=== PATIENT | female | born 1975 ===

== ENCOUNTER 2017-07-22 15:20 | Emergency (ER) | payer OTHER ==
--- NOTE | 2017-07-22 16:26 | C.PDOC ---
History Of Present Illness 41 year old female presents to the ED with complaints of swelling to the right foot for one month. Patient states she took Advil and "antibiotics found at home " with no relief two weeks ago. She has a doctor's appointment scheduled for tomorrow and denies fever, weakness, or numbness. Time Seen by Provider: 07/22/17 15:34 Chief Complaint (Nursing): Lower Extremity Problem/Injury History Per: Patient History/Exam Limitations: no limitations Onset/Duration Of Symptoms: Persistent (1 month ) Recent travel outside of the [place]: No Past Medical History Reviewed: Historical Data, Nursing Documentation, Vital Signs Vital Signs: Last Vital Signs Temp 97.9 F 07/22/17 19:00 Pulse 72 07/22/17 19:00 Resp 18 07/22/17 19:00 BP 110/62 07/22/17 19:00 Pulse Ox 98 07/22/17 19:00 Surgical History: Cholecystectomy Family History: States: Other Other Family History: Non-contributory. - Social History Hx Alcohol Use: No Hx Substance Use: No Review Of Systems Except As Marked, All Systems Reviewed And Found Negative. Constitutional: Negative for: Fever Neurological: Negative for: Weakness, Numbness Physical Exam - Physical Exam Appears: Well, Non-toxic, No Acute Distress Skin: Warm, Dry Head: Atraumatic, Normacephalic Oral Mucosa: Moist Cardiovascular: Rhythm Regular Respiratory: No Decreased Breath Sounds, No Accessory Muscle Use Gastrointestinal/Abdominal: Soft, No Tenderness Extremity: Normal ROM, Tenderness (to dosrum of right foot ), No Pedal Edema, No Calf Tenderness, Capillary Refill (good capillary refill, less than two seconds ), No Deformity, No Swelling, Other (mild erythema to anterior right lower leg, no edema. ) Pulses: Left Dorsalis Pedis: Normal, Right Dorsalis Pedis: Normal Neurological/Psych: Oriented x3, Normal Motor, Normal Sensation ED Course And Treatment - Laboratory Results Result Diagrams: 07/22/17 17:18 07/22/17 17:18 O2 Sat by Pulse Oximetry: 100 (room air ) Progress Note: Blood work was ordered and patient was given Anaprox. Medical Decision Making Medical Decision Makinpm disc results w pt and plan for return early tomorrow morning for a venous duplex. she v/u and agrees w plan. Disposition - Disposition Referrals: [facility] [Outside] Disposition: HOME/ ROUTINE Disposition Time: 18:42 Condition: STABLE Additional Instructions: Por favor regrese maana por la maana para un sonograma de andrade pierna. Instructions: Leg Pain (ED) Forms: Gen Discharge Inst Arabic, [facility] (Estonian) Print Language: LAO - Clinical Impression Clinical Impression: Leg pain - Scribe Statement The provider has reviewed the documentation as recorded by the Scribe Alvina Bernstein All medical record entries made by the Scribe were at my direction and personally dictated by me. I have reviewed the chart and agree that the record accurately reflects my personal performance of the history, physical exam, medical decision making, and the department course for this patient. I have also personally directed, reviewed, and agree with the discharge instructions and disposition.
[2017-07-22] MEDS ORDERED: Naproxen 550 mg Tab PO STA (16:33)
[2017-07-22] MEDS ORDERED: Naproxen 550 mg Tab PO ONE (17:12)
[2017-07-22 17:25] LABS: BASO % 0.7 % (0.0-2.0); EOS # 0.3 K/uL (0.0-0.7); EOS % 3.4 % (0.0-4.0); HEMATOCRIT 36.2 % (34.0-47.0); LYMPH # 2.7 K/uL (1.0-4.3); LYMPH % 36.4 % (20.0-40.0); MEAN CORPUSCULAR HEMOGLOBIN 26.8 pg (27.0-31.0); MEAN CORPUSCULAR HGB CONC 33.1 g/dL (33.0-37.0); MEAN PLATELET VOLUME 9.1 fL (7.2-11.7); MONO # 0.6 K/uL (0.0-0.8); MONO % 7.9 % (0.0-10.0); RED CELL DISTRIBUTION WIDTH 13.2 % (11.5-14.5); WHITE BLOOD COUNT 7.4 K/uL (4.8-10.8)
[2017-07-22 17:30] LABS: CHLORIDE 105 mmol/L (98-107); POTASSIUM 4.2 mmol/L (3.6-5.2); SODIUM 138 mmol/L (132-148)
[2017-07-22 17:33] LABS: ALB/GLOB RATIO 1.4 (1.0-2.1); ALKALINE PHOSPHATASE 43 U/L (38-126); ALT/SGPT 30 U/L (9-52); AST/SGOT 18 U/L (14-36); BILIRUBIN,TOTAL 0.5 mg/dL (0.2-1.3); BLOOD UREA NITROGEN 16 mg/dL (7-17); CARBON DIOXIDE 23 mmol/L (22-30); GFR AFRICAN-AMERICAN > 60; GLUCOSE,RANDOM 89 mg/dL (65-105)
[2017-07-22 17:34] LABS: CALCIUM 8.9 mg/dl (8.6-10.4)
[2017-07-22] MEDS ORDERED: Enoxaparin 80 mg Syringe SC STA (18:41)
[2017-07-22] MEDS ORDERED: Enoxaparin 80 mg Syringe ONE (18:55)
[2017-07-22 19:01] VITALS: BP 110/62; PULSE 72; RESP 18; TEMP 97.9
[2017-07-24 15:14] VITALS: O2SAT 100
== END 2017-07-22 19:01 | disposition home or self-care (01) ==
LOC: C.ER 15:20
DX: M79.671 Pain in right foot (principal)
CPT/HCPCS: 80053; 85025; 85378; 96372; 99284; J1650

== ENCOUNTER 2017-07-23 08:26 | Emergency (ER) | payer OTHER ==
[2017-07-23 08:44] VITALS: TEMP 98.4
[2017-07-23 10:18] VITALS: O2SAT 98
--- NOTE | 2017-07-23 10:21 | C.PDOC ---
History Of Present Illness 41 year old female presents to the ED with complaints of intermittent right leg/ foot pain swelling for approix one month. Patient notes swelling has improved, however pain continued. Patient was seen yesterday in the ER - blood work was done which showed elevated d-dimer, however vascular was not available for venous doppler. Patient was given SC Lovenox and instructed to return today for doppler. She denies fever, falls/injuries, sensory changes, chest pain/ SOB. Time Seen by Provider: 07/23/17 09:00 Chief Complaint (Nursing): Lower Extremity Problem/Injury History Per: Patient History/Exam Limitations: no limitations Onset/Duration Of Symptoms: Intermittent Episodes (1 month ) Current Symptoms Are (Timing): Better Severity: Mild Recent travel outside of the [place]: No Past Medical History Reviewed: Historical Data, Nursing Documentation, Vital Signs Vital Signs: Last Vital Signs Temp 98.4 F 07/23/17 08:41 Pulse 78 07/23/17 13:43 Resp 16 07/23/17 13:43 BP 128/78 07/23/17 13:43 Pulse Ox 98 07/23/17 14:26 - Medical History PMH: No Chronic Diseases Surgical History: Cholecystectomy Family History: States: No Known Family Hx - Social History Hx Alcohol Use: No Hx Substance Use: No Review Of Systems Except As Marked, All Systems Reviewed And Found Negative. Constitutional: Negative for: Fever, Chills Cardiovascular: Negative for: Chest Pain, Palpitations Respiratory: Negative for: Shortness of Breath Gastrointestinal: Negative for: Nausea, Vomiting Musculoskeletal: Positive for: Other (right foot/lower leg pain and swelling) Skin: Negative for: Rash Neurological: Negative for: Numbness Physical Exam - Physical Exam Appears: Well, Non-toxic, No Acute Distress Skin: Normal Color, Warm, Dry, No Rash Head: Normacephalic Eye(s): bilateral: Normal Inspection Oral Mucosa: Moist Neck: Supple Cardiovascular: Rhythm Regular Respiratory: Normal Breath Sounds, No Rales, No Rhonchi, No Wheezing Extremity: Normal ROM, Tenderness (tenderness to palpation of right lateral foot and distal leg ), No Pedal Edema, Calf Tenderness (mild lower calf tenderness ), Capillary Refill (< 2 sec all digits ), No Deformity, No Swelling , Other (no erythema) Pulses: Left Dorsalis Pedis: Normal, Right Dorsalis Pedis: Normal Neurological/Psych: Oriented x3, Normal Sensation Gait: Steady ED Course And Treatment O2 Sat by Pulse Oximetry: 98 (room air ) Pulse Ox Interpretation: Normal - CT Scan/US CT ABD/EXT VENOGRAM Other Rad Studies (CT/US): Read By Radiologist, Radiology Report Reviewed CT/US Interpretation: Accession No. : [id number]. Patient Name / ID : NAEL PAGAN / [id number]. Exam Date : 07/23/2017 11:59:03 ( Approved ). Study Comment : Sex / Age : F / 41Y. Creator : Meg Vallecillo. Dictator : Meg Vallecillo. [employer]fuels Technology Development Manager : Or Assistant : Meg Vallecillo. Approver2 : Report Date : 07/23/2017 13:18:59. My Comment : . PROCEDURE: CT venogram of the abdomen pelvis and lower extremities. HISTORY: R/O RLE DVT - UNABLE TO DO DOPPLER. Right leg is swelling. COMPARISON: No prior similar study available for comparison. TECHNIQUE: Axial and reformatted coronal and sagittal CT venogram of the abdomen pelvis and lower extremity was obtained after IV contrast administration. IV contrast dose: 100 mL Visipaque 320. Total exam DLP: 1724.79. This CT exam was performed using one or more of the following dose reduction techniques: Automated exposure control, adjustment of the mA and/or kV according to patient size, and/or use of iterative reconstruction technique. FINDINGS: This study is suboptimal. The opacification of the superficial femoral veins and popliteal veins aids suboptimal therefore evaluation for DVT in the thigh and popliteal region is limited in this exam. The scan through the upper abdomen demonstrate no acute pathology. The patient is status post cholecystectomy. The liver is slightly heterogeneous mildly enlarged. The portal vein is patent. No evidence of acute pathology in the pancreas spleen and adrenal glands. The kidneys enhance symmetrically. There is suspicious for nonobstructing mass at the right colon measures 3.5 x 3 centimeter. No evidence of bowel obstruction. The uterus is mildly enlarged heterogeneous. There is moderate enlargement of the uterine cervix noted of uncertain etiology. There is enhancing wall cyst at the right adnexa measures 2.1 centimeter. The urinary bladder is grossly unremarkable. There is no evidence of filling defect in the IVC and iliac veins. The proximal portion of the femoral veins are also patent. The mid and distal femoral veins are not opacified therefore cannot be evaluated. There is diffuse soft tissue swelling at the right leg. There are multiple subcutaneous round densities in the lower abdomen, bilateral buttock areas and in the bilateral thigh likely represent subcutaneous injection of silicone or other cosmetic material. The osseous structures are grossly unremarkable. IMPRESSION: Limited study. The assessment of the mid and distal femoral veins and popliteal veins is limited in this study. No evidence of deep vein thrombosis at the IVC and iliac veins. No evidence of deep vein thrombosis in the proximal portion of the femoral veins. Suspicious for mass lesion at the right colon. Further assessment is recommended. Mildly enlarged uterus especially the uterine cervix. 2.1 centimeter enhancing wall cyst at the right adnexa may represent prominent follicle or corpus luteum cyst. Progress Note: Venous doppler ordered however patient had cosmetic procedure done where slicone is injected into legs - as per US tech he is unable to visualize veins by US. CT venogram with IV contrast of the lower extremities was ordered. 1:25PM- Discussed CT scan findings with patient. She understands that CT scan has not definitively ruled out a DVT, and that it also shows possible colon mass. Radiologist has recommended repeating current study with PO contrast (to better eval colon) and longer time lapse between IV contrast and CT scan (>2 min). 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 Dose of SC lovenox given now. Patient understands the importance of returning tomorrow, and she knows she should return to ED immediately if she has any concerning symptoms in the interim. Disposition Counseled Patient/Family Regarding: Studies Performed, Diagnosis, Need For Followup - Disposition Disposition: HOME/ ROUTINE Disposition Time: 13:30 Condition: STABLE Additional Instructions: REGRESAR A LA ALEA DE EMERGENCIA MAANA PARA LA REPETICIN DEL CT SCAN RETURN TO EMERGENCY ROOM TOMORROW FOR REPEAT OF CT SCAN Instructions: Leg Pain (ED) Forms: [facility] (South African) Print Language: BAHAMIAN - POA Present On Arrival: None - Clinical Impression Clinical Impression: Right leg pain - Scribe Statement The provider has reviewed the documentation as recorded by the Scribe Alvnia Bernstein
[2017-07-23] MEDS ORDERED: Iodixanol 320 mg/ml 150 ml Bottle IV ONE (11:28)
--- NOTE | 2017-07-23 13:20 | CT ---
PROCEDURE: CT venogram of the abdomen pelvis and lower extremities. HISTORY: R/O RLE DVT - UNABLE TO DO DOPPLER. Right leg is swelling. COMPARISON: No prior similar study available for comparison. TECHNIQUE: Axial and reformatted coronal and sagittal CT venogram of the abdomen pelvis and lower extremity was obtained after IV contrast administration. IV contrast dose: 100 mL Visipaque 320. Total exam DLP: 1724.79. This CT exam was performed using one or more of the following dose reduction techniques: Automated exposure control, adjustment of the mA and/or kV according to patient size, and/or use of iterative reconstruction technique. FINDINGS: This study is suboptimal. The opacification of the superficial femoral veins and popliteal veins aids suboptimal therefore evaluation for DVT in the thigh and popliteal region is limited in this exam. The scan through the upper abdomen demonstrate no acute pathology. The patient is status post cholecystectomy. The liver is slightly heterogeneous mildly enlarged. The portal vein is patent. No evidence of acute pathology in the pancreas spleen and adrenal glands. The kidneys enhance symmetrically. There is suspicious for nonobstructing mass at the right colon measures 3.5 x 3 centimeter. No evidence of bowel obstruction. The uterus is mildly enlarged heterogeneous. There is moderate enlargement of the uterine cervix noted of uncertain etiology. There is enhancing wall cyst at the right adnexa measures 2.1 centimeter. The urinary bladder is grossly unremarkable. There is no evidence of filling defect in the IVC and iliac veins. The proximal portion of the femoral veins are also patent. The mid and distal femoral veins are not opacified therefore cannot be evaluated. There is diffuse soft tissue swelling at the right leg. There are multiple subcutaneous round densities in the lower abdomen, bilateral buttock areas and in the bilateral thigh likely represent subcutaneous injection of silicone or other cosmetic material. The osseous structures are grossly unremarkable. IMPRESSION: Limited study. The assessment of the mid and distal femoral veins and popliteal veins is limited in this study. No evidence of deep vein thrombosis at the IVC and iliac veins. No evidence of deep vein thrombosis in the proximal portion of the femoral veins. Suspicious for mass lesion at the right colon. Further assessment is recommended. Mildly enlarged uterus especially the uterine cervix. 2.1 centimeter enhancing wall cyst at the right adnexa may represent prominent follicle or corpus luteum cyst.
[2017-07-23] MEDS ORDERED: Enoxaparin 80 mg Syringe SC STA (13:26)
[2017-07-23 13:44] VITALS: BP 128/78; PULSE 78; RESP 16
== END 2017-07-23 13:43 | disposition home or self-care (01) ==
LOC: C.ER 08:26
DX: M79.604 Pain in right leg (principal)
CPT/HCPCS: 75635; 99284; Q9967

== ENCOUNTER 2017-07-24 08:17 | Emergency (ER) | payer OTHER ==
[2017-07-24 08:21] VITALS: O2SAT 100
[2017-07-24] MEDS ORDERED: Sodium Chloride 0.9% 1,000 ML IV ONE (08:27)
[2017-07-24] MEDS ORDERED: Iohexol 240 (50 ml) PO STA (08:28)
[2017-07-24] MEDS ORDERED: Sodium Chloride 0.9% 1,000 ML ONE (08:38)
[2017-07-24] MEDS ORDERED: Iohexol 240 (50 ml) ONE (08:38)
--- NOTE | 2017-07-24 08:45 | C.PDOC ---
History Of Present Illness Patient returns to ED for repeat venogram of abd/pelvis and extremities to r/o DVT and possible colon CA. Imaging done yesterday was suboptimal and radiologist recommended repeat study with PO + IV contrast. Patient has been having RLE pain/swelling over the past 1 month - unable to have venous doppler due to silicone injections in legs (for aesthetic reasons). Time Seen by Provider: 07/24/17 08:21 Chief Complaint (Nursing): Lower Extremity Problem/Injury History Per: Patient History/Exam Limitations: no limitations Onset/Duration Of Symptoms: Persistent Current Symptoms Are (Timing): Better (decreased swelling, but pain persists) Severity: Mild Past Medical History Reviewed: Historical Data, Nursing Documentation, Vital Signs Vital Signs: Last Vital Signs Temp 98.0 F 07/24/17 14:23 Pulse 97 H 07/24/17 14:23 Resp 16 07/24/17 14:23 BP 127/78 07/24/17 14:23 Pulse Ox 100 07/24/17 14:23 - Medical History PMH: No Chronic Diseases Surgical History: Cholecystectomy Family History: States: No Known Family Hx - Social History Hx Alcohol Use: No Hx Substance Use: No Review Of Systems Except As Marked, All Systems Reviewed And Found Negative. Constitutional: Negative for: Fever, Chills Cardiovascular: Negative for: Chest Pain Respiratory: Negative for: Shortness of Breath Gastrointestinal: Negative for: Nausea, Vomiting, Abdominal Pain, Diarrhea Neurological: Positive for: Other (right lowel leg/food pain/swelling) Physical Exam - Physical Exam Appears: Well, Non-toxic, No Acute Distress Oral Mucosa: Moist Cardiovascular: Rhythm Regular Respiratory: Normal Breath Sounds, No Rales, No Rhonchi, No Wheezing Gastrointestinal/Abdominal: Normal Exam, Bowel Sounds, Soft, No Tenderness Extremity: Tenderness (mild TTP at distal lower leg and lateral foot, no erythema, no swelling), Capillary Refill (< 2 sec all digits ) ED Course And Treatment - Laboratory Results Result Diagrams: 07/24/17 08:47 07/24/17 08:47 O2 Sat by Pulse Oximetry: 100 (RA) Pulse Ox Interpretation: Normal - CT Scan/US CT ABD/EXT VENOGRAM Other Rad Studies (CT/US): Read By Radiologist, Radiology Report Reviewed CT/US Interpretation: Accession No. : [id number]. Patient Name / ID : NAEL PAGAN / [id number]. Exam Date : 07/24/2017 11:18:19 ( Approved ). Study Comment : Sex / Age : F / 41Y. Creator : Meg Vallecillo. Dictator : Meg Vallecillo. Position Classification Manager : Senior Pl Sql Developer : Meg Vallecillo. Approver2 : Report Date : 07/24/2017 13:54:31. My Comment : . This report is currently processing and HAS NOT BEEN OFFICIALLY SIGNED BY THE PHYSICIAN - ESTIMATED TIME OF APPROVAL IS 07/24/2017 13:59. PROCEDURE: CT Abdomen and Pelvis with contrast. HISTORY: possible colon CA, possible DVT RLE,po+iv contrast. COMPARISON: Comparison is made to the previous CT venogram dated . TECHNIQUE: Contrast dose: 100 mL Omnipaque intravenously. Axial and reformatted coronal and sagittal CT images of the abdomen and pelvis were obtained after IV and oral contrast administration. CT venogram of the pelvis and lower extremities was also performed. Radiation dose: Total exam DLP = 2226.17 and 412.72 mGy-cm. This CT exam was performed using one or more of the following dose reduction techniques: Automated exposure control, adjustment of the mA and/or kV according to patient size, and/or use of iterative reconstruction technique. FINDINGS: LOWER THORAX: Unremarkable. LIVER: Unremarkable. No gross lesion or ductal dilatation. GALLBLADDER AND BILE DUCTS : Status post cholecystectomy. PANCREAS: Unremarkable. No gross lesion or ductal dilatation. SPLEEN: Unremarkable. ADRENALS: Unremarkable. No mass. KIDNEYS AND URETERS: Unremarkable. No hydronephrosis. No solid mass. VASCULATURE: Unremarkable. No aortic aneurysm. BOWEL: There is nonobstructed soft tissue mass lesion at the ascending colon/ hepatic flexure measures 4.1 x 4 centimeter highly suspicious for malignant neoplasm. No evidence of bowel obstruction. APPENDIX: Normal appendix. PERITONEUM: Unremarkable. No free fluid. No free air. LYMPH NODES: Unremarkable. No enlarged lymph nodes. BLADDER: Mild the urinary bladder wall thickening. REPRODUCTIVE: Heterogeneous mildly enlarged uterus is again noted. The uterine cervix and lower uterine segment is moderately enlarged. Again seen is 2 centimeter cyst at the right adnexa. BONES: No acute fracture. OTHER FINDINGS: CT venogram of the pelvis and lower extremities: There is no evidence of filling defect in the bilateral iliac and femoral veins to suggest deep vein thrombosis. No evidence of deep vein thrombosis in the popliteal veins. There is diffuse swelling of the right thigh. There are subcutaneous stranding seen at the right thigh. There are scattered subcutaneous foci of mildly high attenuation seen in the posterior pelvis and lower extremities likely due to prior subcutaneous injections such as silicone injection. IMPRESSION: No evidence of deep vein thrombosis up to the knees. 4 x 24.1 centimeter mass lesion at the right colon suspicious for malignant neoplasm. Colonoscopy is recommended. Heterogeneous [id number] enlarged uterine cervix and lower segment. Further assessment by non emergent ultrasound of the pelvis is recommended. Mild urinary bladder wall thickening. The above findings were reported to and discussed with the referring ER physician Dr. Reyes at 1:50 p.m. on 07/24/2017 PE Progress Note: CT Venogram abd/ext with PO & IV constrast ordered and reviewed. 2:05PM- Spoke with patient at length about her CT scan findings. She understands that her scan shows a right sided colon mass, likely due to malignancy, and that she needs admission for colon mass/CA with further workup. Patient has no one to keep her daughter with today, but she will make arrnangements and return tomorrow for admission. Disposition Counseled Patient/Family Regarding: Studies Performed, Diagnosis, Need For Followup - Disposition Referrals: [facility] [Outside] Disposition: HOME/ ROUTINE Disposition Time: 14:05 Condition: STABLE Additional Instructions: DEVOLUCIN A LA ALEA DE EMERGENCIA MAANA PARA LA ADMISIN RETURN TO EMERGENCY ROOM TOMORROW FOR ADMISSION Forms: [employer] (Israeli) Print Language: CZECH - POA Present On Arrival: None - Clinical Impression Clinical Impression: Colonic mass
[2017-07-24 08:55] LABS: BASO % 0.9 % (0.0-2.0); EOS # 0.2 K/uL (0.0-0.7); EOS % 4.9 % (0.0-4.0); HEMATOCRIT 37.1 % (34.0-47.0); LYMPH # 1.6 K/uL (1.0-4.3); LYMPH % 32.8 % (20.0-40.0); MEAN CORPUSCULAR HEMOGLOBIN 27.2 pg (27.0-31.0); MEAN CORPUSCULAR HGB CONC 33.5 g/dL (33.0-37.0); MEAN PLATELET VOLUME 9.4 fL (7.2-11.7); MONO # 0.3 K/uL (0.0-0.8); MONO % 5.9 % (0.0-10.0); NRBC % 0.1 % (0.0-2.0); RED CELL DISTRIBUTION WIDTH 13.5 % (11.5-14.5)
[2017-07-24 09:02] LABS: INR 1.1
[2017-07-24 09:12] LABS: CHLORIDE 105 mmol/L (98-107); POTASSIUM 3.6 mmol/L (3.6-5.2); SODIUM 140 mmol/L (132-148)
[2017-07-24 09:14] LABS: GFR AFRICAN-AMERICAN > 60
[2017-07-24 09:15] LABS: BLOOD UREA NITROGEN 13 mg/dL (7-17); CALCIUM 8.5 mg/dl (8.6-10.4); CARBON DIOXIDE 23 mmol/L (22-30); GLUCOSE,RANDOM 101 mg/dL (65-105)
[2017-07-24] MEDS ORDERED: Iodixanol 320 mg/ml 150 ml Bottle IV ONE (11:00)
--- NOTE | 2017-07-24 13:56 | CT ---
PROCEDURE: CT Abdomen and Pelvis with contrast HISTORY: possible colon CA, possible DVT RLE,po+iv contrast COMPARISON: Comparison is made to the previous CT venogram dated 07/23/2017 TECHNIQUE: Contrast dose: 100 mL Omnipaque intravenously. Axial and reformatted coronal and sagittal CT images of the abdomen and pelvis were obtained after IV and oral contrast administration. CT venogram of the pelvis and lower extremities was also performed. Radiation dose: Total exam DLP = 2226.17 and 412.72 mGy-cm. This CT exam was performed using one or more of the following dose reduction techniques: Automated exposure control, adjustment of the mA and/or kV according to patient size, and/or use of iterative reconstruction technique. FINDINGS: LOWER THORAX: Unremarkable. LIVER: Unremarkable. No gross lesion or ductal dilatation. GALLBLADDER AND BILE DUCTS: Status post cholecystectomy PANCREAS: Unremarkable. No gross lesion or ductal dilatation. SPLEEN: Unremarkable. ADRENALS: Unremarkable. No mass. KIDNEYS AND URETERS: Unremarkable. No hydronephrosis. No solid mass. VASCULATURE: Unremarkable. No aortic aneurysm. BOWEL: There is nonobstructed soft tissue mass lesion at the ascending colon/ hepatic flexure measures 4.1 x 4 centimeter highly suspicious for malignant neoplasm. No evidence of bowel obstruction. APPENDIX: Normal appendix. PERITONEUM: Unremarkable. No free fluid. No free air. LYMPH NODES: Unremarkable. No enlarged lymph nodes. BLADDER: Mild the urinary bladder wall thickening. REPRODUCTIVE: Heterogeneous mildly enlarged uterus is again noted. The uterine cervix and lower uterine segment is moderately enlarged. Again seen is 2 centimeter cyst at the right adnexa. BONES: No acute fracture. OTHER FINDINGS: CT venogram of the pelvis and lower extremities: There is no evidence of filling defect in the bilateral iliac and femoral veins to suggest deep vein thrombosis. No evidence of deep vein thrombosis in the popliteal veins. There is diffuse swelling of the right thigh. There are subcutaneous stranding seen at the right thigh. There are scattered subcutaneous foci of mildly high attenuation seen in the posterior pelvis and lower extremities likely due to prior subcutaneous injections such as silicone injection. IMPRESSION: No evidence of deep vein thrombosis up to the knees. 4 x 24.1 centimeter mass lesion at the right colon suspicious for malignant neoplasm. Colonoscopy is recommended. Heterogeneous [id number] enlarged uterine cervix and lower segment. Further assessment by non emergent ultrasound of the pelvis is recommended. Mild urinary bladder wall thickening. The above findings were reported to and discussed with the referring ER physician Dr. Reyes at 1:50 p.m. on 07/24/2017 PE
[2017-07-24 14:24] VITALS: BP 127/78; PULSE 97; RESP 16; TEMP 98
== END 2017-07-24 14:24 | disposition home or self-care (01) ==
LOC: C.ER 08:17
DX: K63.89 Other specified diseases of intestine (principal)
CPT/HCPCS: 75635; 80048; 85025; 85610; 85730; 96360; 99285; J7040; Q9966; Q9967

== ENCOUNTER 2017-07-28 10:09 | Inpatient (IN) | payer OTHER, MEDICAID ==
--- NOTE | 2017-07-28 12:07 | C.PDOC ---
History Of Present Illness 41 yo female, who was seen in ED twice on 07/23 and 07/24/17, return to ED for admission. Pt reports, her scan shows a right sided colon mass, likely due to malignancy, and that she needs admission for colon mass/CA with further workup. Pt also reports right leg pain, had venogram without findings of DVT. Patient reports, " need to make arrangement for her daughter and now return for offered admission". Otherwise, pt denies fever, chills, headache, dizziness, CP, SOB, dyspnea, diaphoresis, palpitation, abd. pain, N/V/D, UTI sx, denies weakness, sensory or vascular deficits to B/L UEs and LEs. Ambulate to ED for evaluation, not in any apparent distress. Time Seen by Provider: 07/28/17 11:06 Chief Complaint (Nursing): Abdominal Pain History Per: Patient History/Exam Limitations: no limitations Onset/Duration Of Symptoms: Days Current Symptoms Are (Timing): Still Present Past Medical History Reviewed: Historical Data, Nursing Documentation, Vital Signs Vital Signs: Last Vital Signs Temp 98.1 F 07/28/17 10:25 Pulse 70 07/28/17 14:21 Resp 16 07/28/17 14:21 BP 115/73 07/28/17 14:21 Pulse Ox 100 07/28/17 14:21 Surgical History: Cholecystectomy Family History: States: No Known Family Hx - Social History Hx Alcohol Use: No Hx Substance Use: No Review Of Systems Except As Marked, All Systems Reviewed And Found Negative. Constitutional: Negative for: Fever, Chills Cardiovascular: Negative for: Chest Pain, Palpitations Respiratory: Negative for: Shortness of Breath Gastrointestinal: Negative for: Nausea, Vomiting, Abdominal Pain, Diarrhea Musculoskeletal: Positive for: Leg Pain (Right leg) Neurological: Negative for: Weakness, Numbness, Headache, Dizziness Physical Exam - Physical Exam Appears: Non-toxic, No Acute Distress Skin: Warm, Dry, No Rash Head: Atraumatic, Normacephalic Oral Mucosa: Moist Chest: Symmetrical, No Tenderness Cardiovascular: Rhythm Regular, No Murmur Respiratory: Normal Breath Sounds, No Rales, No Rhonchi, No Stridor, No Wheezing Neurological/Psych: Oriented x3, Normal Speech, Normal Motor ED Course And Treatment - Laboratory Results Result Diagrams: 07/28/17 12:50 07/28/17 12:50 O2 Sat by Pulse Oximetry: 100 (RA) Pulse Ox Interpretation: Normal - Other Rad CXR X-Ray: Viewed By Me, Read By Radiologist Interpretation: HISTORY: abdominal pain. COMPARISON: None available. TECHNIQUE: Chest, one view. FINDINGS: LUNGS: No focal consolidation. Please note that chest x-ray has limited sensitivity for the detection of pulmonary masses. PLEURA: No significant pleural effusion identified. No definite pneumothorax . CARDIOVASCULAR: Heart size appears within normal limits. OSSEOUS STRUCTURES: No acute osseous abnormality identified. VISUALIZED UPPER ABDOMEN: Unremarkable. OTHER FINDINGS: None. IMPRESSION: No focal consolidation, significant pleural effusion, or definite pneumothorax identified. Progress Note: Case discussed with Med-on-call and admission arranged Medical Decision Making Medical Decision Making: PLAN: * CXR * EKG * CBC * BMP * HCG * Urinalysis Disposition - Disposition Disposition: HOSPITALIZED Disposition Time: 12:10 Condition: STABLE - Clinical Impression Clinical Impression: Colonic mass - PA / CATERING CHEF / Resident Statement MD/DO has reviewed & agrees with the documentation as recorded. - Scribe Statement The provider has reviewed the documentation as recorded by the Scribe Lilly Villarreal All medical record entries made by the Beckiibmarcy were at my direction and personally dictated by me. I have reviewed the chart and agree that the record accurately reflects my personal performance of the history, physical exam, medical decision making, and the department course for this patient. I have also personally directed, reviewed, and agree with the discharge instructions and disposition.
[2017-07-28 12:54] LABS: BASO % 0.8 % (0.0-2.0); EOS # 0.1 K/uL (0.0-0.7); HEMATOCRIT 35.8 % (34.0-47.0); LYMPH # 1.5 K/uL (1.0-4.3); LYMPH % 27.4 % (20.0-40.0); MEAN CELL VOLUME 81.1 fL (81.0-99.0); MEAN CORPUSCULAR HEMOGLOBIN 27.1 pg (27.0-31.0); MEAN CORPUSCULAR HGB CONC 33.4 g/dL (33.0-37.0); MEAN PLATELET VOLUME 9.3 fL (7.2-11.7); MONO # 0.3 K/uL (0.0-0.8); MONO % 6.1 % (0.0-10.0); NRBC % 0.1 % (0.0-2.0); RED CELL DISTRIBUTION WIDTH 13.4 % (11.5-14.5); WHITE BLOOD COUNT 5.6 K/uL (4.8-10.8)
[2017-07-28 12:58] LABS: RBC URINE 1 /hpf (0-3); URINE BACTERIA RARE (<OCC); URINE BILIRUBIN NEGATIVE (NEGATIVE); URINE BLOOD 3+ (NEGATIVE); URINE COLOR Yellow (YELLOW); URINE GLUCOSE (UA) NORMAL (Normal); URINE KETONE 2+ mg/dL (NEGATIVE); URINE LEUKOCYTE ESTERASE NEG Leu/uL (Negative); URINE PROTEIN NEGATIVE (NEGATIVE); WBC URINE 1 /hpf (0-5)
[2017-07-28 13:04] LABS: CHLORIDE 103 mmol/L (98-107); INR 1.2; SODIUM 142 mmol/L (132-148)
[2017-07-28 13:05] LABS: POTASSIUM 3.6 mmol/L (3.6-5.2)
[2017-07-28 13:07] LABS: BLOOD UREA NITROGEN 12 mg/dL (7-17); CARBON DIOXIDE 23 mmol/L (22-30); GFR AFRICAN-AMERICAN > 60
[2017-07-28 13:08] LABS: CALCIUM 8.5 mg/dl (8.6-10.4); GLUCOSE,RANDOM 74 mg/dL (65-105)
--- NOTE | 2017-07-28 13:26 | CP.PCM.PN ---
Subjective - Date & Time of Evaluation Date of Evaluation: 07/28/17 Time of Evaluation: 13:22 - Subjective Subjective: CC: came here for abnormal test results, diarrhea x4 months Palestinian speaking. Patient is a 41yo [place] woman who states she has been losing weight, having diarrhea with every meal for 4 months, with lower extremity swelling. She has no past medical history to her knowledge, and no family history of cancer other than breast cancer in mom who from it in her 60's. Her also recently, and she thought that the diarrhea and weight loss could have been from the depression/pain she has been feeling from that. She denies all other symptoms; denies fevers/chills, night sweats, SOB, abdominal pain, N/V/, dysura/freq/urg, or lower extremity pain/swelling currently. PMhx: none Meds: Ibuprofen for pain PRN FamHx: Mom with breast CA, dad HTN Social: Independent in all IADL and ADL, works, has 1 daughter, does not smoke/ drink/drugs Surgeries: Gallbladder removal 6 years ago Allergies: None Objective - Vital Signs/Intake and Output Vital Signs (last 24 hours): Temp Pulse Resp BP Pulse Ox 98.1 F 63 18 114/72 100 07/28/17 10:25 07/28/17 12:11 07/28/17 12:11 07/28/17 12:11 07/28/17 12:47 - Medications Medications: Current Medications Acetaminophen (Tylenol 325mg Tab) 975 mg PO Q8H PRN PRN Reason: Fever >100.4 F Ibuprofen (Motrin Tab) 800 mg PO Q8H PRN PRN Reason: Pain, Mild (1-3) Ondansetron HCl (Zofran Inj) 4 mg IVP Q6H PRN PRN Reason: Nausea/Vomiting - Labs Labs: 07/28/17 12:50 07/28/17 12:50 PT 13.7 SECONDS (9.7-12.2) H 07/28/17 12:50 INR 1.2 07/28/17 12:50 APTT 29 SECONDS (21-34) 07/28/17 12:50 - Constitutional Appears: Well, Non-toxic - Head Exam Head Exam: ATRAUMATIC, NORMAL INSPECTION - Eye Exam Eye Exam: EOMI Pupil Exam: PERRL - ENT Exam ENT Exam: Mucous Membranes Moist - Neck Exam Neck Exam: Full ROM. absent: Lymphadenopathy - Respiratory Exam Respiratory Exam: Clear to Ausculation Bilateral, NORMAL BREATHING PATTERN. absent: Rales, Rhonchi, Wheezes - Cardiovascular Exam Cardiovascular Exam: REGULAR RHYTHM, +S1, +S2 - GI/Abdominal Exam GI & Abdominal Exam: Soft, Normal Bowel Sounds. absent: Tenderness, Organomegaly, Pulsatile Mass, Rebound - Extremities Exam Extremities Exam: Full ROM. absent: Calf Tenderness, Pedal Edema - Back Exam Back Exam: NORMAL INSPECTION. absent: CVA tenderness (L), CVA tenderness (R) - Neurological Exam Neurological Exam: Alert, Awake, CN II-XII Intact, Normal Gait, Oriented x3 - Psychiatric Exam Psychiatric exam: Normal Affect, Normal Mood - Skin Skin Exam: Warm Assessment and Plan - Assessment and Plan (Free Text) Assessment: 41yo F admitted for Colonic Mass found on imaging Colonic Mass -Winger:surgery; appreciate recs -Jl; GI; appreciate recs -NPO for colonscopy/biopsy after midnight tonight; pre-op labs done -4 by 21cm mass seen on previous contrast -patient has had 4 months of diarrhea; f/u stool studies Prophylaxis -Pepcid IV -Zofran IV PRN -Ibuprofen PRN pain -Lovenox [address] Jason Huerta PGY2 Note for Dr. Reddy
[2017-07-28] MEDS ORDERED: Enoxaparin 40 mg Syringe ONE (13:40)
[2017-07-28] MEDS ORDERED: Enoxaparin 40 mg Syringe SC SCH (14:00)
--- NOTE | 2017-07-28 14:15 | RAD ---
HISTORY: abdominal pain COMPARISON: None available. TECHNIQUE: Chest, one view. FINDINGS: LUNGS: No focal consolidation. Please note that chest x-ray has limited sensitivity for the detection of pulmonary masses. PLEURA: No significant pleural effusion identified. No definite pneumothorax . CARDIOVASCULAR: Heart size appears within normal limits. OSSEOUS STRUCTURES: No acute osseous abnormality identified. VISUALIZED UPPER ABDOMEN: Unremarkable. OTHER FINDINGS: None. IMPRESSION: No focal consolidation, significant pleural effusion, or definite pneumothorax identified.
--- NOTE | 2017-07-28 14:32 | CP.PCM.CON ---
History of Present Illness - History of Present Illness History of Present Illness: General Surgery - Dr. Gibson 41 yo F who presents to ED for abnormal CT results. Per patient and the chart she had a CT Venogram done last week for lower extremity pain/swelling , and was found to have 3x3cm mass in the Right colon near the hepatic flexure. Pt states that for the past 4 months she has noticed mild intermittent Right sided abdominal pain. Also for the past 4 months she has experienced diarrhea after meals, which has discouraged her from eating. She denies any N/V, Constipation, Hematochezia, Urinary symptoms. Initially pt. states that she had some pain in her right foot which prompted her to go to the ED. She had a CT Venogram done which was negative for any vascular abnormality. She denies any swelling in the Lower extremities. PMH: none PSH: Lap Cholecystectomy 6 years ago FH: Mother had Breast Ca in 60s No meds NKDA Review of Systems - Review of Systems All systems: reviewed and no additional remarkable complaints except (as per HPI ) Past Patient History - Infectious Disease Hx of Infectious Diseases: None - Past Social History Smoking Status: Never Smoked - PSYCHIATRIC Hx Substance Use: No - SURGICAL HISTORY Hx Cholecystectomy: Yes - ANESTHESIA Hx Anesthesia: Yes Hx Anesthesia Reactions: No Meds Allergies/Adverse Reactions: Allergies Allergy/AdvReac Type Severity Reaction Status Date / Time No Known Allergies Allergy Verified 07/28/17 10:28 - Medications Medications: Current Medications Acetaminophen (Tylenol 325mg Tab) 975 mg PO Q8H PRN PRN Reason: Fever >100.4 F Last Admin: 07/28/17 13:46 Dose: 975 mg Enoxaparin Sodium (Lovenox) 40 mg SC DAILY [facility] Last Admin: 07/28/17 13:46 Dose: 40 mg Famotidine (Pepcid) 20 mg IVP DAILY [facility] Last Admin: 07/28/17 13:46 Dose: Not Given Ibuprofen (Motrin Tab) 800 mg PO Q8H PRN PRN Reason: Pain, Mild (1-3) Ondansetron HCl (Zofran Inj) 4 mg IVP Q6H PRN PRN Reason: Nausea/Vomiting Physical Exam - Constitutional Appears: Well, No Acute Distress - Head Exam Head Exam: ATRAUMATIC, NORMAL INSPECTION, NORMOCEPHALIC - Eye Exam Eye Exam: Normal appearance - Respiratory Exam Respiratory Exam: NORMAL BREATHING PATTERN. absent: Respiratory Distress - Cardiovascular Exam Cardiovascular Exam: REGULAR RHYTHM - GI/Abdominal Exam GI & Abdominal Exam: Soft, Tenderness (R mid abdomen, ttp). absent: Distended, Firm, Guarding, Hernia, Rebound, Rigid - Neurological Exam Neurological exam: Alert, Oriented x3 - Psychiatric Exam Psychiatric exam: Normal Affect, Normal Mood - Skin Skin Exam: Dry, Intact Results - Vital Signs Recent Vital Signs: Last Vital Signs Temp 98.1 F 07/28/17 10:25 Pulse 70 07/28/17 14:21 Resp 16 07/28/17 14:21 BP 115/73 07/28/17 14:21 Pulse Ox 100 07/28/17 14:21 - Labs Result Diagrams: 07/28/17 12:50 07/28/17 12:50 Labs: Laboratory Results - last 24 hr 07/28/17 07/28/17 07/28/17 12:50 12:50 12:50 WBC 5.6 RBC 4.42 Hgb 12.0 Hct 35.8 MCV 81.1 MCH 27.1 MCHC 33.4 RDW 13.4 Plt Count 177 MPV 9.3 Neut % (Auto) 64.7 Lymph % (Auto) 27.4 Treasure % (Auto) 6.1 Eos % (Auto) 1.0 Baso % (Auto) 0.8 Neut # 3.6 Lymph # 1.5 Treasure # 0.3 Eos # 0.1 Baso # 0.0 PT 13.7 H INR 1.2 APTT 29 Sodium Potassium Chloride Carbon Dioxide Anion Gap BUN Creatinine Est GFR ( Amer) Est GFR (Non-Af Amer) Random Glucose Calcium Total Creatine Kinase Urine Color Yellow Urine Clarity Clear Urine pH 5.0 Ur Specific [place] 1.025 Urine Protein Negative Urine Glucose (UA) Normal Urine Ketones 2+ H Urine Blood 3+ H Urine Nitrate Negative Urine Bilirubin Negative Urine Urobilinogen 2.0 H Ur Leukocyte Esterase Neg Urine WBC (Auto) 1 Urine RBC (Auto) 1 Ur Squamous Epith Cells 1 Urine Bacteria Rare Urine HCG, Qual 07/28/17 07/28/17 12:50 12:50 WBC RBC Hgb Hct MCV MCH MCHC RDW Plt Count MPV Neut % (Auto) Lymph % (Auto) Treasure % (Auto) Eos % (Auto) Baso % (Auto) Neut # Lymph # Treasure # Eos # Baso # PT INR APTT Sodium 142 Potassium 3.6 Chloride 103 Carbon Dioxide 23 Anion Gap 20 BUN 12 Creatinine 0.5 L Est GFR ( Amer) > 60 Est GFR (Non-Af Amer) > 60 Random Glucose 74 Calcium 8.5 L Total Creatine Kinase 35 Urine Color Urine Clarity Urine pH Ur Specific [place] Urine Protein Urine Glucose (UA) Urine Ketones Urine Blood Urine Nitrate Urine Bilirubin Urine Urobilinogen Ur Leukocyte Esterase Urine WBC (Auto) Urine RBC (Auto) Ur Squamous Epith Cells Urine Bacteria Urine HCG, Qual Negative Assessment & Plan - Assessment and Plan (Free Text) Assessment: 41 yo F w/ R colon mass -NPO for colonoscopy tomorrow -Will F/U results of scope and GI recc. -Poss. OR Fri. or . -Continue care as per medical teams -LUIS ENRIQUE Miguel PGY3
[2017-07-28] MEDS ORDERED: Peg-Electrolyte Oral Soln 4L (Golytely) PO ONE (19:00)
[2017-07-28] MEDS: Dextrose 5%/Lactated Ringer's 1,000 ML IV SCH (19:38)
[2017-07-29] MEDS: Dextrose 5%/Lactated Ringer's 1,000 ML IV SCH ×4 (02:45→22:22)
[2017-07-29 07:24] LABS: HEMATOCRIT 33.8 % (34.0-47.0); MEAN CELL VOLUME 80.9 fL (81.0-99.0); MEAN CORPUSCULAR HEMOGLOBIN 27.2 pg (27.0-31.0); MEAN CORPUSCULAR HGB CONC 33.7 g/dL (33.0-37.0); MEAN PLATELET VOLUME 9.3 fL (7.2-11.7); RED CELL DISTRIBUTION WIDTH 13.5 % (11.5-14.5); WHITE BLOOD COUNT 5.2 K/uL (4.8-10.8)
[2017-07-29 07:36] LABS: ALB/GLOB RATIO 1.4 (1.0-2.1); ALKALINE PHOSPHATASE 32 U/L (38-126); ALT/SGPT 33 U/L (9-52); AST/SGOT 17 U/L (14-36); BILIRUBIN,TOTAL 0.5 mg/dL (0.2-1.3); BLOOD UREA NITROGEN 7 mg/dL (7-17); CALCIUM 8.7 mg/dl (8.6-10.4); CARBON DIOXIDE 26 mmol/L (22-30); CHLORIDE 103 mmol/L (98-107); GFR AFRICAN-AMERICAN > 60; GLUCOSE,RANDOM 116 mg/dL (65-105); POTASSIUM 3.4 mmol/L (3.6-5.2); SODIUM 138 mmol/L (132-148); TOTAL PROTEIN 5.5 g/dL (6.3-8.3)
--- NOTE | 2017-07-29 08:37 | CP.PCM.PN ---
Subjective - Date & Time of Evaluation Date of Evaluation: 07/29/17 Time of Evaluation: 08:34 - Subjective Subjective: General Surgery - Dr. Gibson Pt S&E. FATOU. Pt denies any complaints at this time. She is going for colonoscopy this morning. No F/C, N/V, SOB/Cp. Objective - Vital Signs/Intake and Output Vital Signs (last 24 hours): Temp Pulse Resp BP Pulse Ox 98.2 F 77 20 117/74 98 07/29/17 08:19 07/29/17 08:19 07/29/17 08:19 07/29/17 08:19 07/29/17 08:19 Intake and Output: 07/29/17 07/29/17 06:59 18:59 Intake Total 5300 Output Total 300 Balance 5000 - Medications Medications: Current Medications Acetaminophen (Tylenol 325mg Tab) 975 mg PO Q8H PRN PRN Reason: Fever >100.4 F Last Admin: 07/28/17 13:46 Dose: 975 mg Enoxaparin Sodium (Lovenox) 40 mg SC DAILY [facility] Last Admin: 07/28/17 13:46 Dose: 40 mg Famotidine (Pepcid) 20 mg IVP DAILY [facility] Last Admin: 07/28/17 13:46 Dose: Not Given Dextrose/Lactated Ringer's (Dextrose 5%/Lactated Ringer's) 1,000 mls @ 100 mls/ hr IV .Q10H [facility] Last Admin: 07/29/17 06:50 Dose: 100 mls/hr Ibuprofen (Motrin Tab) 800 mg PO Q8H PRN PRN Reason: Pain, Mild (1-3) Ondansetron HCl (Zofran Inj) 4 mg IVP Q6H PRN PRN Reason: Nausea/Vomiting Pneumococcal Polyvalent Vaccine (Pneumovax 23 Vaccine) 0.5 ml IM .ONCE ONE Stop: 07/30/17 10:01 - Labs Labs: 07/29/17 07:11 07/29/17 07:11 PT 13.7 SECONDS (9.7-12.2) H 07/28/17 12:50 INR 1.2 07/28/17 12:50 APTT 29 SECONDS (21-34) 07/28/17 12:50 - Constitutional Appears: No Acute Distress - Head Exam Head Exam: ATRAUMATIC, NORMAL INSPECTION, NORMOCEPHALIC - Eye Exam Eye Exam: Normal appearance - Respiratory Exam Respiratory Exam: NORMAL BREATHING PATTERN - Cardiovascular Exam Cardiovascular Exam: REGULAR RHYTHM - GI/Abdominal Exam GI & Abdominal Exam: Soft. absent: Distended, Guarding, Tenderness, Rebound - Neurological Exam Neurological Exam: Alert, Oriented x3 - Psychiatric Exam Psychiatric exam: Normal Affect, Normal Mood - Skin Skin Exam: Dry, Intact Assessment and Plan - Assessment and Plan (Free Text) Assessment: 41 yo F w/ R colon mass -Colonoscopy today, will F/U -Poss. OR Fri. or . pending results of colonoscopy -Continue care as per medical teams -LUIS ENRIQUE Miguel PGY3
--- NOTE | 2017-07-29 09:57 | VASCLAB ---
PROCEDURE: Lower Extremity Venous Duplex Exam. HISTORY: Pain in limb, swelling PRIORS: None. TECHNIQUE: Bilateral common femoral, femoral, popliteal and posterior tibial, peroneal and great saphenous veins were evaluated. Flow was assessed with color Doppler, compressibility, assessment of phasic flow and augmentation response. Report prepared by CHARISSA Núñez FINDINGS: RIGHT: 1. Common Femoral Vein: 1.1. Not visualized. 2. Femoral Vein: 2.1. Not visualized. 3. Popliteal Vein: 3.1. Compressibility - Fully compressible: Thrombus - None : Flow - Phasic: Augmentation -Normal: Reflux - None. 4. Posterior Tibial Vein: 4.1. Compressibility - Fully compressible: Thrombus - None: Flow - Phasic: Augmentation -Normal: Reflux - None. 5. Peroneal Vein: 5.1. Compressibility - Fully compressible: Thrombus - None: Flow - Phasic: Augmentation -Normal: Reflux - None. 6. Great Saphenous Vein: (lower leg only) 6.1. Compressibility - Fully compressible: Thrombus - None: Flow - Phasic: Augmentation - Normal: Reflux - None. LEFT: 1. Common Femoral Vein: 1.1. Not visualized. 2. Femoral Vein: 2.1. Not visualized. 3. Popliteal Vein: 3.1. Compressibility - Fully compressible: Thrombus - None : Flow - Phasic: Augmentation -Normal: Reflux - None. 4. Posterior Tibial Vein: 4.1. Not visualized. 5. Peroneal Vein: 5.1. Compressibility - Fully compressible: Thrombus - None: Flow - Phasic: Augmentation -Normal: Reflux - None. 6. Great Saphenous Vein: 6.1. Not visualized. OTHER FINDINGS: IMPRESSION: Right: No evidence of deep or superficial vein thrombosis of the right popliteal, posterior tibial, peroneal and lower great saphenous veins. Left: No evidence of deep vein thrombosis of the left popliteal and peroneal veins. LIMITED EXAMINATION. Limited imaging of the lower extremity veins, due to prior subcutaneous silicone injections in the lower extremities.
--- NOTE | 2017-07-29 10:38 | CP.PCM.PN ---
Subjective - Date & Time of Evaluation Date of Evaluation: 07/29/17 Time of Evaluation: 11:00 - Subjective Subjective: Patient is seen in room. She reports coming to the hospital because of having several episodes of diarrhea and weight loss of 15lbs over the past 4 months. She denies having fever, chills, nausea, vomiting, Objective - Vital Signs/Intake and Output Vital Signs (last 24 hours): Temp Pulse Resp BP Pulse Ox 98.2 F 77 20 117/74 98 07/29/17 08:19 07/29/17 08:19 07/29/17 08:19 07/29/17 08:19 07/29/17 08:19 Intake and Output: 07/29/17 07/29/17 06:59 18:59 Intake Total 5300 Output Total 300 Balance 5000 - Medications Medications: Current Medications Acetaminophen (Tylenol 325mg Tab) 975 mg PO Q8H PRN PRN Reason: Fever >100.4 F Last Admin: 07/28/17 13:46 Dose: 975 mg Bisacodyl (Dulcolax) 10 mg PO ONCE ONE Stop: 07/29/17 17:01 Enoxaparin Sodium (Lovenox) 40 mg SC DAILY [facility] Last Admin: 07/28/17 13:46 Dose: 40 mg Famotidine (Pepcid) 20 mg IVP DAILY [facility] Last Admin: 07/29/17 09:25 Dose: 20 mg Dextrose/Lactated Ringer's (Dextrose 5%/Lactated Ringer's) 1,000 mls @ 100 mls/ hr IV .Q10H [facility] Last Admin: 07/29/17 06:50 Dose: 100 mls/hr Potassium Chloride (Potassium Chloride 20 Meq/100 Ml) 20 meq in 100 mls @ 50 mls/hr IVPB ONCE ONE Stop: 07/29/17 11:36 Last Admin: 07/29/17 10:21 Dose: 50 mls/hr Ibuprofen (Motrin Tab) 800 mg PO Q8H PRN PRN Reason: Pain, Mild (1-3) Metoclopramide HCl (Reglan) 5 mg IVP Q6 [facility] Ondansetron HCl (Zofran Inj) 4 mg IVP Q6H PRN PRN Reason: Nausea/Vomiting Pneumococcal Polyvalent Vaccine (Pneumovax 23 Vaccine) 0.5 ml IM .ONCE ONE Stop: 07/30/17 10:01 Polyethylene Glycol/Electrolytes (Golytely) 4,000 ml PO ONCE ONE Stop: 07/29/17 12:31 - Labs Labs: 07/29/17 07:11 07/29/17 07:11 PT 13.7 SECONDS (9.7-12.2) H 07/28/17 12:50 INR 1.2 07/28/17 12:50 APTT 29 SECONDS (21-34) 07/28/17 12:50 - Constitutional Appears: Non-toxic, No Acute Distress - Head Exam Head Exam: NORMOCEPHALIC - Eye Exam Eye Exam: Normal appearance Pupil Exam: NORMAL ACCOMODATION - ENT Exam ENT Exam: Normal Exam - Respiratory Exam Respiratory Exam: Clear to Ausculation Bilateral. absent: Rales, Rhonchi, Wheezes - Cardiovascular Exam Cardiovascular Exam: REGULAR RHYTHM, RRR, +S1, +S2. absent: Gallop, Rubs - GI/Abdominal Exam GI & Abdominal Exam: Soft, Normal Bowel Sounds. absent: Tenderness - Extremities Exam Extremities Exam: Normal Inspection. absent: Pedal Edema - Psychiatric Exam Psychiatric exam: Normal Affect, Normal Mood Assessment and Plan - Assessment and Plan (Free Text) Assessment: 41yo F admitted for Colonic Mass found on imaging Colonic Mass 07/29: Patient is to have colonoscopy today. stool studies are also still pending. diarrhea has improved. Patient is for surgery tomorrow. Arthur:surgery; appreciate recs -Jl; GI; appreciate recs -NPO for colonscopy/biopsy after midnight tonight; pre-op labs done -4 by 21cm mass seen on previous contrast -patient has had 4 months of diarrhea; f/u stool studies Prophylaxis 07/29 continue current management. Pepcid IV -Zofran IV PRN -Ibuprofen PRN pain -Lovenox [address] Reddy
[2017-07-29] MEDS ORDERED: Peg-Electrolyte Oral Soln 4L (Golytely) PO ONE (12:30)
[2017-07-29] MEDS ORDERED: Potassium Chloride 20 mEq ER Tab PO ONE (13:00)
[2017-07-29] MEDS ORDERED: Propofol 10 mg/ml Inj (20 ML) ONE ×2 (14:00)
[2017-07-29] MEDS ORDERED: Lidocaine Hydrochloride 5 ML INJ ONE (14:01)
[2017-07-29] MEDS ORDERED: Lactated Ringer's 1,000 ML IV ONE (14:15)
[2017-07-29] MEDS ORDERED: Phytonadione 10 mg/ml Inj (Adult) SC STA (14:52)
[2017-07-29] MEDS ORDERED: Phytonadione 10 mg/ml Inj (Adult) SC ONE (16:15)
[2017-07-29] MEDS ORDERED: Bisacodyl 5mg EC Tab PO ONE (17:00)
[2017-07-30 07:28] LABS: HEMATOCRIT 34.3 % (34.0-47.0); MEAN CELL VOLUME 80.9 fL (81.0-99.0); MEAN CORPUSCULAR HEMOGLOBIN 27.2 pg (27.0-31.0); MEAN CORPUSCULAR HGB CONC 33.7 g/dL (33.0-37.0); MEAN PLATELET VOLUME 9.6 fL (7.2-11.7); RED CELL DISTRIBUTION WIDTH 13.4 % (11.5-14.5); WHITE BLOOD COUNT 5.8 K/uL (4.8-10.8)
[2017-07-30 08:03] LABS: CHLORIDE 100 mmol/L (98-107); POTASSIUM 3.3 mmol/L (3.6-5.2); SODIUM 140 mmol/L (132-148)
[2017-07-30 08:05] LABS: GFR AFRICAN-AMERICAN > 60
[2017-07-30 08:06] LABS: ALB/GLOB RATIO 1.3 (1.0-2.1); ALKALINE PHOSPHATASE 35 U/L (38-126); ALT/SGPT 30 U/L (9-52); AST/SGOT 13 U/L (14-36); BILIRUBIN,TOTAL 0.6 mg/dL (0.2-1.3); BLOOD UREA NITROGEN 4 mg/dL (7-17); CARBON DIOXIDE 25 mmol/L (22-30); GLUCOSE,RANDOM 121 mg/dL (65-105); TOTAL PROTEIN 5.6 g/dL (6.3-8.3)
[2017-07-30 08:07] LABS: CALCIUM 8.3 mg/dl (8.6-10.4)
[2017-07-30 08:12] LABS: CARCINOEMBRYONIC ANTIGEN 0.8 ng/mL (0-3.0)
--- NOTE | 2017-07-30 08:21 | CP.PCM.PN ---
Subjective - Date & Time of Evaluation Date of Evaluation: 07/30/17 Time of Evaluation: 07:00 - Subjective Subjective: General Surgery Progress Note for Dr. Gibson Patient seen and examined at bedside. No acute event overnight. Patient resting in bed comfortably with no complaints. She denies F/C, N/V, SOB/Cp. Objective - Vital Signs/Intake and Output Vital Signs (last 24 hours): Temp Pulse Resp BP Pulse Ox 98.7 F 82 19 117/79 100 07/30/17 08:06 07/30/17 08:06 07/30/17 08:06 07/30/17 08:06 07/30/17 08:06 Intake and Output: 07/30/17 07/30/17 06:59 18:59 Intake Total 2140 Balance 2140 - Medications Medications: Current Medications Acetaminophen (Tylenol 325mg Tab) 975 mg PO Q8H PRN PRN Reason: Fever >100.4 F Last Admin: 07/28/17 13:46 Dose: 975 mg Enoxaparin Sodium (Lovenox) 40 mg SC DAILY [facility] Last Admin: 07/28/17 13:46 Dose: 40 mg Famotidine (Pepcid) 20 mg IVP DAILY [facility] Last Admin: 07/29/17 09:25 Dose: 20 mg Dextrose/Lactated Ringer's (Dextrose 5%/Lactated Ringer's) 1,000 mls @ 100 mls/ hr IV .Q10H [facility] Last Admin: 07/29/17 22:22 Dose: 100 mls/hr Ibuprofen (Motrin Tab) 800 mg PO Q8H PRN PRN Reason: Pain, Mild (1-3) Metoclopramide HCl (Reglan) 5 mg IVP Q6 [facility] Last Admin: 07/30/17 06:30 Dose: Not Given Ondansetron HCl (Zofran Inj) 4 mg IVP Q6H PRN PRN Reason: Nausea/Vomiting Pneumococcal Polyvalent Vaccine (Pneumovax 23 Vaccine) 0.5 ml IM .ONCE ONE Stop: 07/30/17 10:01 - Labs Labs: 07/30/17 07:15 07/29/17 07:11 PT 13.7 SECONDS (9.7-12.2) H 07/28/17 12:50 INR 1.2 07/28/17 12:50 APTT 29 SECONDS (21-34) 07/28/17 12:50 - Constitutional Appears: No Acute Distress - Head Exam Head Exam: ATRAUMATIC, NORMOCEPHALIC - Eye Exam Eye Exam: Normal appearance - ENT Exam ENT Exam: Mucous Membranes Moist - Respiratory Exam Respiratory Exam: NORMAL BREATHING PATTERN - Cardiovascular Exam Cardiovascular Exam: REGULAR RHYTHM - GI/Abdominal Exam GI & Abdominal Exam: Soft. absent: Distended, Firm, Guarding, Tenderness, Rebound - Extremities Exam Extremities Exam: absent: Calf Tenderness - Neurological Exam Neurological Exam: Alert, Awake, Oriented x3 - Psychiatric Exam Psychiatric exam: Normal Affect, Normal Mood - Skin Skin Exam: Dry, Intact, Normal Color, Warm Assessment and Plan - Assessment and Plan (Free Text) Plan: 41 F with R colon mass -Colonoscopy showed fungating mass near hepatic flexure -Scheduled for OR Th -Continue care as per medical teams -LUIS ENRIQUE Hayes PGY1
[2017-07-30] MEDS: Dextrose 5%/Lactated Ringer's 1,000 ML IV SCH ×2 (09:09→18:45)
[2017-07-30] MEDS ORDERED: Potassium Chloride 20 mEq ER Tab PO STA ×2 (09:17→10:30)
[2017-07-30] MEDS ORDERED: Magnesium Citrate Oral SOL (300 ml) PO ONE (09:19)
[2017-07-30] MEDS ORDERED: Erythromycin Base 500 mg Tab PO ONE ×2 (10:00→11:00)
[2017-07-30] MEDS ORDERED: Pneumococcal 23-Valent Vaccine IM ONE (10:00)
[2017-07-30] MEDS: Piperacillin/Tazobact 3.375 GM in Sodium Chloride 100 ML IVPB SCH ×2 (10:30→17:30)
--- NOTE | 2017-07-30 11:04 | HP ---
HISTORY OF PRESENT ILLNESS: The patient is a 41-year-old female, admitted to the hospital with leg pain, swelling. The patient ____colon mass CAT scan, advised admission. The patient is nonsmoker, nondrinker. The patient is [place] with one child. PHYSICAL EXAMINATION: GENERAL: The patient is awake, alert, and oriented. VITAL SIGNS: Temperature 98 and pulse 90. HEENT: Within normal limits. NECK: Supple. CHEST: Symmetrical. HEART: Regular. ABDOMEN: Soft. EXTREMITIES: No edema. PLAN: The patient with colon mass. The patient will have colonoscopy. Supportive care. Leesa Reddy MD
[2017-07-30] MEDS ORDERED: Potassium Chloride 20 mEq ER Tab PO ONE (12:34)
--- NOTE | 2017-07-30 14:36 | CP.PCM.PN ---
Subjective - Date & Time of Evaluation Date of Evaluation: 07/30/17 Time of Evaluation: 10:00 - Subjective Subjective: Dr. Reddy notes: Patient is seen and examined in room. She says her diarrhea has improved since admission and she is having more regular bowel movements. Objective - Vital Signs/Intake and Output Vital Signs (last 24 hours): Temp Pulse Resp BP Pulse Ox 98.7 F 82 19 117/79 100 07/30/17 08:06 07/30/17 08:06 07/30/17 08:06 07/30/17 08:06 07/30/17 08:06 Intake and Output: 07/30/17 07/30/17 06:59 18:59 Intake Total 2140 Balance 2140 - Medications Medications: Current Medications Acetaminophen (Tylenol 325mg Tab) 975 mg PO Q8H PRN PRN Reason: Fever >100.4 F Last Admin: 07/28/17 13:46 Dose: 975 mg Enoxaparin Sodium (Lovenox) 40 mg SC DAILY [facility] Last Admin: 07/28/17 13:46 Dose: 40 mg Erythromycin (Erythromycin) 500 mg PO ONCE ONE Stop: 07/30/17 20:01 Famotidine (Pepcid) 20 mg IVP DAILY [facility] Last Admin: 07/30/17 09:09 Dose: 20 mg Dextrose/Lactated Ringer's (Dextrose 5%/Lactated Ringer's) 1,000 mls @ 100 mls/ hr IV .Q10H [facility] Last Admin: 07/30/17 09:09 Dose: 100 mls/hr Piperacillin Sod/Tazobactam (Sod 3.375 gm/ Sodium Chloride) 100 mls @ 200 mls/ hr IVPB Q8H [facility] Last Admin: 07/30/17 10:30 Dose: 200 mls/hr Ibuprofen (Motrin Tab) 800 mg PO Q8H PRN PRN Reason: Pain, Mild (1-3) Metoclopramide HCl (Reglan) 5 mg IVP Q6 [facility] Last Admin: 07/30/17 11:39 Dose: Not Given Neomycin Sulfate (Neomycin Tab) 1,000 mg PO ONCE ONE Stop: 07/30/17 20:01 Ondansetron HCl (Zofran Inj) 4 mg IVP Q6H PRN PRN Reason: Nausea/Vomiting - Labs Labs: 07/30/17 07:15 07/30/17 07:15 PT 13.7 SECONDS (9.7-12.2) H 07/28/17 12:50 INR 1.2 07/28/17 12:50 APTT 29 SECONDS (21-34) 07/28/17 12:50 - Constitutional Appears: Non-toxic, No Acute Distress - Eye Exam Eye Exam: Normal appearance Pupil Exam: NORMAL ACCOMODATION - Respiratory Exam Respiratory Exam: Clear to Ausculation Bilateral. absent: Rhonchi, Wheezes - Cardiovascular Exam Cardiovascular Exam: REGULAR RHYTHM, RRR, +S1, +S2. absent: Gallop, Rubs - GI/Abdominal Exam GI & Abdominal Exam: Soft, Normal Bowel Sounds. absent: Tenderness - Extremities Exam Extremities Exam: Normal Inspection - Neurological Exam Neurological Exam: Alert - Psychiatric Exam Psychiatric exam: Normal Affect, Normal Mood - Skin Skin Exam: Normal Color Assessment and Plan - Assessment and Plan (Free Text) Assessment: Colonic Mass 07/30: Colonscopy showed a colonic mass in the hepatic flexure and polyups. Surgery is scheduled for trohayleyow with Dr. Huertas. 07/29: Patient is to have colonoscopy today. stool studies are also still pending. diarrhea has improved. Arthur:surgery; appreciate recs -Jl; GI; appreciate recs -NPO for colonscopy/biopsy after midnight tonight; pre-op labs done -4 by 21cm mass seen on previous contrast -patient has had 4 months of diarrhea; f/u stool studies Prophylaxis 07/30 continue current management 07/29 continue current management. Pepcid IV -Zofran IV PRN -Ibuprofen PRN pain -Lovenox [address] Reddy
--- NOTE | 2017-07-30 15:03 | PN ---
DATE: LOCATION: [address] [place] [address] B. SUBJECTIVE: This is 41 years old female seen and examined in rounds without significant clinical changes or reported active bleeding, post colonoscopy with polypectomy and biopsy. No nausea or vomiting reported. The entire chart is reviewed including, but not limited to the most recent lab and radiology study results, current and the previous medication lists, current and the previous medical events and the results of the pathology report from yesterday was indicative of tubulovillous adenoma as well as two tubular adenomatous polyps. PHYSICAL EXAMINATION: GENERAL: A 41 years old female, awake, alert, oriented. VITAL SIGNS: Afebrile with pulse rate of 84, respiratory rate of 20-22, blood pressure of 124/76. HEENT: Showed dry oral mucous membrane, nonicteric sclerae. LUNGS: Clear. Breathing sounds are present bilaterally. HEART: Positive S1 and S2. ABDOMEN: Soft. Bowel sounds are present. No mass or organomegaly. No rebound tenderness or guarding. EXTREMITIES: Without edema, clubbing, or cyanosis. NEUROLOGIC: No reported new neurological deficits, sensory or motor. LABORATORY DATA: Today's lab showed normal CBC with low potassium 3.3, low BUN and creatinine, but increased blood glucose level 121 with low calcium 8.3, with low albumin and low total protein. All the cancer markers are reported normal. IMPRESSION: 1. Colon polyps. 2. Tubulovillous adenoma of the colon, large, need surgical resection. 3. Known history of status post cholecystectomy. Case discussed with Dr. Reddy today. The patient will need partial colon resection. Annetta Fox MD cc: Annetta Fox MD
[2017-07-30 16:26] LABS: C DIFF TOXIN A B NEGATIVE (NEGATIVE)
[2017-07-30 20:33] LABS: FECAL LEUKOCYTES NEGATIVE (NEGATIVE)
--- NOTE | 2017-07-30 21:02 | CP.PCM.CON ---
History of Present Illness - History of Present Illness History of Present Illness: 41 year old male with a history admitted with a near obstructing right sided colon mass. She reports to intermittent abdominal pain which prompted a CT scan to be done which revealed her colonic mass. She denies blood in the stool but notes to black stools intermittently. She has not lost weight and denies weightloss. Past medical history: None Past surgical history: Cholecystectomy Family history: Mother had breast cancer in her 50s Social history: Denies tobacco, alcohol, and illicit drug use. Allergies: NKA Review of systems: All remaining review of systems including HEENT, cardiovascular, respiratory, gastrointestinal, genitourinary, musculoskeletal, dermatologic, neurologic, and psychiatric are negative unless mentioned in the HPI. Past Patient History - Infectious Disease Hx of Infectious Diseases: None - Past Medical History & Family History Past Medical History?: No - Past Social History Smoking Status: Never Smoked - MUSCULOSKELETAL/RHEUMATOLOGICAL Hx Falls: No - PSYCHIATRIC Hx Substance Use: No - SURGICAL HISTORY Hx Surgeries: Yes Hx Cholecystectomy: Yes - ANESTHESIA Hx Anesthesia: Yes Hx Anesthesia Reactions: No Meds Allergies/Adverse Reactions: Allergies Allergy/AdvReac Type Severity Reaction Status Date / Time No Known Allergies Allergy Verified 07/28/17 10:28 - Medications Medications: Current Medications Acetaminophen (Tylenol 325mg Tab) 975 mg PO Q8H PRN PRN Reason: Fever >100.4 F Last Admin: 07/28/17 13:46 Dose: 975 mg Enoxaparin Sodium (Lovenox) 40 mg SC DAILY [facility] Last Admin: 07/28/17 13:46 Dose: 40 mg Famotidine (Pepcid) 20 mg IVP DAILY [facility] Last Admin: 07/30/17 09:09 Dose: 20 mg Dextrose/Lactated Ringer's (Dextrose 5%/Lactated Ringer's) 1,000 mls @ 100 mls/ hr IV .Q10H [facility] Last Admin: 07/30/17 18:45 Dose: 100 mls/hr Piperacillin Sod/Tazobactam (Sod 3.375 gm/ Sodium Chloride) 100 mls @ 200 mls/ hr IVPB Q8H [facility] Last Admin: 07/30/17 17:30 Dose: 200 mls/hr Ibuprofen (Motrin Tab) 800 mg PO Q8H PRN PRN Reason: Pain, Mild (1-3) Metoclopramide HCl (Reglan) 5 mg IVP Q6 [facility] Last Admin: 07/30/17 18:00 Dose: Not Given Ondansetron HCl (Zofran Inj) 4 mg IVP Q6H PRN PRN Reason: Nausea/Vomiting Physical Exam - Head Exam Head Exam: ATRAUMATIC - Eye Exam Eye Exam: Normal appearance - ENT Exam ENT Exam: Mucous Membranes Dry - Respiratory Exam Respiratory Exam: NORMAL BREATHING PATTERN - Cardiovascular Exam Cardiovascular Exam: +S1, +S2 - GI/Abdominal Exam GI & Abdominal Exam: Normal Bowel Sounds - Extremities Exam Extremities exam: Positive for: normal inspection - Neurological Exam Neurological exam: Oriented x3 - Psychiatric Exam Psychiatric exam: Normal Affect, Normal Mood - Skin Skin Exam: Warm Results - Vital Signs Recent Vital Signs: Last Vital Signs Temp 98.4 F 07/30/17 15:00 Pulse 66 07/30/17 15:00 Resp 20 07/30/17 15:00 BP 115/76 07/30/17 15:00 Pulse Ox 100 07/30/17 15:00 - Labs Result Diagrams: 07/30/17 07:15 07/30/17 07:15 Labs: Laboratory Results - last 24 hr 07/28/17 07/30/17 07/30/17 Unknown 07:15 07:15 WBC 5.8 RBC 4.24 Hgb 11.6 Hct 34.3 MCV 80.9 L MCH 27.2 MCHC 33.7 RDW 13.4 Plt Count 146 MPV 9.6 Sodium 140 Potassium 3.3 L Chloride 100 Carbon Dioxide 25 Anion Gap 18 BUN 4 L Creatinine 0.6 L Est GFR ( Amer) > 60 Est GFR (Non-Af Amer) > 60 Random Glucose 121 H Calcium 8.3 L Total Bilirubin 0.6 AST 13 L D ALT 30 Alkaline Phosphatase 35 L Total Protein 5.6 L Albumin 3.2 L Globulin 2.4 Albumin/Globulin Ratio 1.3 Carcinoembryonic Ag 0.8 Urine HCG, Qual Stool Occult Blood Stool Leukocytes, Qual Negative C. difficile Ag & Toxin Negative 07/30/17 07/30/17 11:35 16:33 WBC RBC Hgb Hct MCV MCH MCHC RDW Plt Count MPV Sodium Potassium Chloride Carbon Dioxide Anion Gap BUN Creatinine Est GFR ( Amer) Est GFR (Non-Af Amer) Random Glucose Calcium Total Bilirubin AST ALT Alkaline Phosphatase Total Protein Albumin Globulin Albumin/Globulin Ratio Carcinoembryonic Ag Urine HCG, Qual Negative Stool Occult Blood Negative Stool Leukocytes, Qual C. difficile Ag & Toxin Assessment & Plan (1) Colonic mass Assessment and Plan: for surgery in AM will check CEA will check CT chest to complete staging further treatment recommendations based on pathology Status: Acute (2) Anemia Assessment and Plan: mild will check ferritin, retic count, b12, folate to further characterize chronic GI blood loss Thank you for this interesting consult. Status: Acute
[2017-07-31] MEDS: Piperacillin/Tazobact 3.375 GM in Sodium Chloride 100 ML IVPB SCH ×3 (00:55→22:00)
[2017-07-31] MEDS: Dextrose 5%/Lactated Ringer's 1,000 ML IV SCH ×2 (05:45→13:52)
[2017-07-31 06:42] LABS: HEMATOCRIT 34.4 % (34.0-47.0); MEAN CELL VOLUME 80.2 fL (81.0-99.0); MEAN CORPUSCULAR HEMOGLOBIN 27.1 pg (27.0-31.0); MEAN CORPUSCULAR HGB CONC 33.9 g/dL (33.0-37.0); RED CELL DISTRIBUTION WIDTH 13.5 % (11.5-14.5); RETIC% 1.2 % (0.5-1.5); WHITE BLOOD COUNT 5.8 K/uL (4.8-10.8)
[2017-07-31 07:07] LABS: ALB/GLOB RATIO 1.3 (1.0-2.1); ALKALINE PHOSPHATASE 34 U/L (38-126); ALT/SGPT 32 U/L (9-52); AST/SGOT 15 U/L (14-36); BILIRUBIN,TOTAL 0.6 mg/dL (0.2-1.3); BLOOD UREA NITROGEN 4 mg/dL (7-17); CALCIUM 8.5 mg/dl (8.6-10.4); CARBON DIOXIDE 28 mmol/L (22-30); CHLORIDE 102 mmol/L (98-107); GFR AFRICAN-AMERICAN > 60; GLUCOSE,RANDOM 115 mg/dL (65-105); POTASSIUM 3.6 mmol/L (3.6-5.2); SODIUM 139 mmol/L (132-148); TOTAL PROTEIN 5.5 g/dL (6.3-8.3)
[2017-07-31 07:25] LABS: CARCINOEMBRYONIC ANTIGEN 0.7 ng/mL (0-3.0)
[2017-07-31 08:00] LABS: FOLATE 12.6 ng/mL
[2017-07-31] MEDS ORDERED: Iodixanol 320 MG/ML 100 ML BOTTLE IV ONE (08:41)
--- NOTE | 2017-07-31 09:16 | CP.PCM.PN ---
Subjective - Date & Time of Evaluation Date of Evaluation: 07/31/17 Time of Evaluation: 09:15 - Subjective Subjective: Pt seen and examined at bedside this AM; she is very nervous for her surgery but reassurance was given. She denies all symptoms today; denies fevers/chills, KLINE, CP, SOB, abdominal pain, N/V, dysuria/freq/urg or lower extremity pain/ swelling. Objective - Vital Signs/Intake and Output Vital Signs (last 24 hours): Temp Pulse Resp BP Pulse Ox 98.4 F 70 20 108/70 98 07/31/17 08:10 07/31/17 08:10 07/31/17 08:10 07/31/17 08:10 07/31/17 08:10 Intake and Output: 07/31/17 07/31/17 06:59 18:59 Intake Total 1900 Balance 1900 - Medications Medications: Current Medications Acetaminophen (Tylenol 325mg Tab) 975 mg PO Q8H PRN PRN Reason: Fever >100.4 F Last Admin: 07/28/17 13:46 Dose: 975 mg Enoxaparin Sodium (Lovenox) 40 mg SC DAILY [facility] Last Admin: 07/28/17 13:46 Dose: 40 mg Famotidine (Pepcid) 20 mg IVP DAILY [facility] Last Admin: 07/30/17 09:09 Dose: 20 mg Dextrose/Lactated Ringer's (Dextrose 5%/Lactated Ringer's) 1,000 mls @ 100 mls/ hr IV .Q10H [facility] Last Admin: 07/31/17 05:45 Dose: 100 mls/hr Piperacillin Sod/Tazobactam (Sod 3.375 gm/ Sodium Chloride) 100 mls @ 200 mls/ hr IVPB Q8H [facility] Last Admin: 07/31/17 00:55 Dose: 200 mls/hr Ibuprofen (Motrin Tab) 800 mg PO Q8H PRN PRN Reason: Pain, Mild (1-3) Metoclopramide HCl (Reglan) 5 mg IVP Q6 [facility] Last Admin: 07/31/17 05:45 Dose: 5 mg Ondansetron HCl (Zofran Inj) 4 mg IVP Q6H PRN PRN Reason: Nausea/Vomiting - Labs Labs: 07/31/17 06:23 07/31/17 06:23 PT 13.7 SECONDS (9.7-12.2) H 07/28/17 12:50 INR 1.2 07/28/17 12:50 APTT 29 SECONDS (21-34) 07/28/17 12:50 - Constitutional Appears: Non-toxic - Head Exam Head Exam: ATRAUMATIC - Eye Exam Eye Exam: EOMI - ENT Exam ENT Exam: Mucous Membranes Moist - Neck Exam Neck Exam: Full ROM. absent: Lymphadenopathy - Respiratory Exam Respiratory Exam: Clear to Ausculation Bilateral, NORMAL BREATHING PATTERN. absent: Rales, Rhonchi, Wheezes - Cardiovascular Exam Cardiovascular Exam: REGULAR RHYTHM, +S1, +S2 - GI/Abdominal Exam GI & Abdominal Exam: Soft, Normal Bowel Sounds - Rectal Exam Rectal Exam: Deferred - Extremities Exam Extremities Exam: Full ROM. absent: Calf Tenderness - Back Exam Back Exam: NORMAL INSPECTION. absent: CVA tenderness (L), CVA tenderness (R) - Neurological Exam Neurological Exam: Alert, Awake, CN II-XII Intact, Oriented x3 Additional comments: patient is very nervous for surgery - Psychiatric Exam Psychiatric exam: Normal Affect - Skin Skin Exam: Warm Assessment and Plan - Assessment and Plan (Free Text) Assessment: 41yo F admitted for Colonic Mass found on imaging, now with GI, Surgery, and Heme-onc on board Colonic Mass -Arthur:surgery; appreciate recs; patient is for surgery today 07/31/2017; going for R Hemicolectomy with reattachment -Jl; GI; appreciate recs; large mass seen in flexure. please refer to report -Heme Onc: Marcus-appreciate recs -4 by 2.1cm mass seen on previous contrast -patient has had 4 months of diarrhea; stool studies have been negative -will continue to monitor s/p surgery Prophylaxis -Pepcid IV -Zofran IV PRN -Ibuprofen PRN pain -Lovenox 40 daily (SCD after surgery, can start 24 hours after surgery) Dr. Jason Huerta PGY2 Note for Dr. Reddy
--- NOTE | 2017-07-31 09:25 | CT ---
CT chest with IV contrast Indication: colon mass staging Technique: Contiguous axial images were obtained through the chest with intravenous contrast enhancement. Sagittal and coronal reconstructions were generated and reviewed. This CT exam was performed using 1 or more of the falling dose reduction techniques: Automated exposure control, adjustment of the MAA and/or kV according to patient size, and/or use of iterative reconstruction technique. IV Contrast: 100 mL Visipaque Radiation dose (DLP): 340.65 MGy-cm. Comparison: Chest xray 07/28/17 Findings: Visualized portions of the inferior thyroid gland appear unremarkable. The mediastinal and hilar vascular structures appear within normal limits. The heart appears within normal limits of size. No focal consolidation. No pleural effusion. No pneumothorax. 3 x 8 mm left upper lobe nodule (series 3, image 16). 4 mm subpleural nodular density within the posterior left upper lobe (series 3, image 44). Hypoattenuation of the liver compatible with hepatic steatosis. Hypoattenuation adjacent to the falciform ligament, likely focal fat. Cholecystectomy. No acute osseous abnormality is detected. Impression: 3 x 8 mm left upper lobe nodule. 4 mm subpleural nodular density within the posterior left upper lobe. Patient with a known malignancy for risk for metastases should receive 3 month follow-up. Hypoattenuation of the liver compatible with hepatic steatosis. Hypoattenuation adjacent to the falciform ligament, likely focal fat. Cholecystectomy.
[2017-07-31] MEDS ORDERED: Lactated Ringer's 1,000 ML IV ONE ×2 (12:50→12:55)
[2017-07-31] MEDS ORDERED: Propofol 10 mg/ml Inj (20 ML) ONE (12:51)
[2017-07-31] MEDS ORDERED: Midazolam 2 MG/2 ML VIAL ONE (12:52)
[2017-07-31] MEDS ORDERED: Piperacillin/Tazobact 3.375 gm 100 ML IVPB ONE (12:59)
[2017-07-31] MEDS ORDERED: metroNIDAZOLE IV 500 mg/100 ml 500 MG/100 ML BAG ONE (12:59)
[2017-07-31] MEDS ORDERED: BUPIVACAINE 0.125%/0.9% NACL 600 ML IJ ONE (13:00)
[2017-07-31] MEDS ORDERED: Bupivacaine 0.5% Inj(30mL) ONE (14:22)
--- NOTE | 2017-07-31 15:08 | PCM.SURG1 ---
Surgeon's Initial Post Op Note - Surgeon's Notes Surgeon: Dr. Gibson Metrology Technician: Dr. Miguel PGY3; Dr. Ocasio PGY2 Type of Anesthesia: General Endo Anesthesia Administered By: Jesus Pre-Operative Diagnosis: Right colon mass Operative Findings: same Post-Operative Diagnosis: same Operation Performed: Right Hemicolectomy Specimen/Specimens Removed: Right colon with terminal ileum Estimated Blood Loss: EBL {In ML}: 200 Blood Products Given: N/A Drains Used: Stephen Post-Op Condition: Good Date of Surgery/Procedure: 07/31/17 Time of Surgery/Procedure: 15:07
[2017-07-31] MEDS: HYDROmorphone 1 mg/ml ISec IVP PRN ×2 (15:24→16:50)
[2017-07-31] MEDS: Lactated Ringer's 1,000 ML IV SCH ×2 (16:30→18:00)
[2017-07-31] MEDS ORDERED: HYDROmorphone 0.5 mg/0.5 ml ISec ONE (16:50)
--- NOTE | 2017-07-31 22:42 | CP.PCM.CON ---
History of Present Illness - History of Present Illness History of Present Illness: 41 F with no significant pmh being observed in ICU post right hepatic flexure colonic resection and reanstomosis for nearly obstructing mass found on CT done for venogram on 07/24. Venogram was normal for the veins though. Patient had colonoscopic biopsy of the lesion as well which has been tubular adenoma in superficial parts. EBL about 250ml, otherwise no events during OR, patient is calm pain is in control with dilaudid static balancer and local bupivacine, has NYASIA with 30ml of fluid. PMH/PSH cholecstectomy Allergies NKDA Social denies smoking, alcohol Meds reviewed in hospital Family history, mother had breast cancer age 50 yrs Review of Systems - Review of Systems All systems: reviewed and no additional remarkable complaints except (HPI) Past Patient History - Infectious Disease Hx of Infectious Diseases: None - Past Medical History & Family History Past Medical History?: No - Past Social History Smoking Status: Never Smoked Alcohol: None Drugs: Denies Home Situation {Lives}: With Family - MUSCULOSKELETAL/RHEUMATOLOGICAL Hx Falls: No - PSYCHIATRIC Hx Substance Use: No - SURGICAL HISTORY Hx Surgeries: Yes Hx Cholecystectomy: Yes - ANESTHESIA Hx Anesthesia: Yes Hx Anesthesia Reactions: No Meds Allergies/Adverse Reactions: Allergies Allergy/AdvReac Type Severity Reaction Status Date / Time No Known Allergies Allergy Verified 07/28/17 10:28 - Medications Medications: Current Medications Acetaminophen (Tylenol 325mg Tab) 975 mg PO Q8H PRN PRN Reason: Fever >100.4 F Last Admin: 07/28/17 13:46 Dose: 975 mg Enoxaparin Sodium (Lovenox) 40 mg SC DAILY [facility] Last Admin: 07/28/17 13:46 Dose: 40 mg Famotidine (Pepcid) 20 mg IVP DAILY [facility] Last Admin: 07/31/17 10:30 Dose: 20 mg Hydromorphone/Sodium Chloride (Dilaudid Pipefitter Helper) 6 mg IV Q4H PRN; Protocol PRN Reason: Pain, severe (8-10) Last Admin: 07/31/17 19:20 Dose: 6 mg BUPIVACAINE 0.125%/0.9% NACL (Bupivacaine-Ns 0.125% On-Q Tattoo Identifier) 600 mls @ 4 mls/ hr IJ ONCE ONE Stop: 08/06/17 18:59 Lactated Ringer's (Lactated Ringer's) 1,000 mls @ 100 mls/hr IV .Q10H [facility] Last Admin: 07/31/17 18:00 Dose: 100 mls Piperacillin Sod/Tazobactam (Sod 3.375 gm/ Sodium Chloride) 100 mls @ 200 mls/ hr IVPB Q8H [facility] Last Admin: 07/31/17 22:00 Dose: 200 mls/hr Metoclopramide HCl (Reglan) 5 mg IVP Q6 [facility] Last Admin: 07/31/17 22:05 Dose: Not Given Ondansetron HCl (Zofran Inj) 4 mg IVP Q6H PRN PRN Reason: Nausea/Vomiting Physical Exam - Additional Findings Additional findings: * HEENT TAN * Neck Supple * Chest Clear * CVS regular, no murmur no rub * PA soft, bs reduced, NYASIA serosanguineous on right side 30 ml * Ext no edema * INDUSTRIAL SOCIOLOGIST awake oriented x3 no fnd * Skin normal turgor Results - Vital Signs Recent Vital Signs: Last Vital Signs Temp 98.7 F 07/31/17 19:55 Pulse 108 H 07/31/17 19:55 Resp 22 07/31/17 19:55 BP 101/60 07/31/17 19:55 Pulse Ox 97 07/31/17 19:55 - Labs Result Diagrams: 07/31/17 06:23 07/31/17 06:23 Labs: Laboratory Results - last 24 hr 07/31/17 07/31/17 07/31/17 06:23 06:23 07:12 WBC 5.8 RBC 4.29 Hgb 11.6 Hct 34.4 MCV 80.2 L MCH 27.1 MCHC 33.9 RDW 13.5 Plt Count 158 MPV 10.0 Retic Count 1.2 Sodium 139 Potassium 3.6 Chloride 102 Carbon Dioxide 28 Anion Gap 13 BUN 4 L Creatinine 0.7 Est GFR ( Amer) > 60 Est GFR (Non-Af Amer) > 60 Random Glucose 115 H Calcium 8.5 L Ferritin 35.9 Total Bilirubin 0.6 AST 15 ALT 32 Alkaline Phosphatase 34 L Total Protein 5.5 L Albumin 3.1 L Globulin 2.3 Albumin/Globulin Ratio 1.3 Carcinoembryonic Ag 0.7 Vitamin B12 852 Folate 12.6 Urine HCG, Qual Negative Assessment & Plan - Assessment and Plan (Free Text) Assessment: * S/p resection of colonic mass and reanastomosis, stable vs, pain controlled, on static balancer dilaudid and local bupivacine, pending path report. Plan: * Supportive care * Monitor H/h, electrolytes * SCD for dvt prophylaxis, anticoagulation after 24 hrs of surg as tolerated * See orders for detail.
[2017-08-01] MEDS: Lactated Ringer's 1,000 ML IV SCH ×4 (04:45→21:00)
[2017-08-01] MEDS: Piperacillin/Tazobact 3.375 GM in Sodium Chloride 100 ML IVPB SCH (04:46)
[2017-08-01 06:17] LABS: BASO % 0.5 % (0.0-2.0); EOS # 0.1 K/uL (0.0-0.7); EOS % 1.9 % (0.0-4.0); HEMATOCRIT 30.9 % (34.0-47.0); LYMPH # 1.5 K/uL (1.0-4.3); LYMPH % 27.6 % (20.0-40.0); MEAN CELL VOLUME 80.6 fL (81.0-99.0); MEAN CORPUSCULAR HEMOGLOBIN 27.4 pg (27.0-31.0); MEAN PLATELET VOLUME 9.7 fL (7.2-11.7); MONO # 0.4 K/uL (0.0-0.8); MONO % 7.1 % (0.0-10.0); NRBC % 0.1 % (0.0-2.0); RED CELL DISTRIBUTION WIDTH 13.5 % (11.5-14.5); WHITE BLOOD COUNT 5.5 K/uL (4.8-10.8)
[2017-08-01 06:31] LABS: CHLORIDE 99 mmol/L (98-107)
[2017-08-01 06:32] LABS: POTASSIUM 3.6 mmol/L (3.6-5.2); SODIUM 136 mmol/L (132-148)
[2017-08-01 06:34] LABS: AST/SGOT 19 U/L (14-36); BILIRUBIN,TOTAL 0.7 mg/dL (0.2-1.3); CARBON DIOXIDE 28 mmol/L (22-30); GFR AFRICAN-AMERICAN > 60
[2017-08-01 06:35] LABS: ALB/GLOB RATIO 1.3 (1.0-2.1); ALKALINE PHOSPHATASE 32 U/L (38-126); ALT/SGPT 42 U/L (9-52); BLOOD UREA NITROGEN 3 mg/dL (7-17); CALCIUM 8.2 mg/dl (8.6-10.4); GLUCOSE,RANDOM 85 mg/dL (65-105); TOTAL PROTEIN 5.1 g/dL (6.3-8.3)
[2017-08-01] MEDS ORDERED: Enoxaparin 40 mg Syringe SC SCH (07:52)
--- NOTE | 2017-08-01 07:57 | CP.PCM.PN ---
Subjective - Date & Time of Evaluation Date of Evaluation: 08/01/17 Time of Evaluation: 07:54 - Subjective Subjective: General Surgery - Dr. Gibson Pt S&E. FATOU. Pt doing well post-op. She has mild abdominal pain near the incision which is expected, the TOYS INSPECTOR has her pain well controlled. She is OOB in the chair and working with incentive spirometer. Pt requesting to eat, may have sips/ice chips for now. No N/V, F/C, SOb/Cp. Stephen drain in RLQ w/ 150cc serosanguinous drainage since surgery. Harden catheter in place w/ >2000cc clear yellow urine, to be D/Dario. Objective - Vital Signs/Intake and Output Vital Signs (last 24 hours): Temp Pulse Resp BP Pulse Ox 98.2 F 73 15 109/74 100 07/31/17 20:30 08/01/17 06:22 08/01/17 06:22 08/01/17 06:22 08/01/17 06:22 Intake and Output: 08/01/17 08/01/17 06:59 18:59 Intake Total 1000 100 Output Total 1540 75 Balance -540 25 - Medications Medications: Current Medications Acetaminophen (Tylenol 325mg Tab) 975 mg PO Q8H PRN PRN Reason: Fever >100.4 F Last Admin: 07/28/17 13:46 Dose: 975 mg Enoxaparin Sodium (Lovenox) 30 mg SC DAILY [facility] Famotidine (Pepcid) 20 mg IVP DAILY [facility] Last Admin: 07/31/17 10:30 Dose: 20 mg Hydromorphone/Sodium Chloride (Dilaudid Travel Journalist) 6 mg IV Q4H PRN; Protocol PRN Reason: Pain, severe (8-10) Last Admin: 07/31/17 19:20 Dose: 6 mg BUPIVACAINE 0.125%/0.9% NACL (Bupivacaine-Ns 0.125% On-Q [employer] Aides [employer] Assistants Teacher) 600 mls @ 4 mls/ hr IJ ONCE ONE Stop: 08/06/17 18:59 Lactated Ringer's (Lactated Ringer's) 1,000 mls @ 100 mls/hr IV .Q10H [facility] Last Admin: 08/01/17 04:45 Dose: 100 mls/hr Piperacillin Sod/Tazobactam (Sod 3.375 gm/ Sodium Chloride) 100 mls @ 200 mls/ hr IVPB Q8H [facility] Last Admin: 08/01/17 04:46 Dose: 200 mls/hr Metoclopramide HCl (Reglan) 5 mg IVP Q6 [facility] Last Admin: 08/01/17 06:14 Dose: 5 mg Ondansetron HCl (Zofran Inj) 4 mg IVP Q6H PRN PRN Reason: Nausea/Vomiting - Labs Labs: 08/01/17 06:11 08/01/17 06:11 PT 13.7 SECONDS (9.7-12.2) H 07/28/17 12:50 INR 1.2 07/28/17 12:50 APTT 29 SECONDS (21-34) 07/28/17 12:50 - Constitutional Appears: No Acute Distress - Head Exam Head Exam: ATRAUMATIC, NORMAL INSPECTION, NORMOCEPHALIC - Eye Exam Eye Exam: Normal appearance - ENT Exam ENT Exam: Mucous Membranes Dry - Respiratory Exam Respiratory Exam: NORMAL BREATHING PATTERN. absent: Respiratory Distress - Cardiovascular Exam Cardiovascular Exam: REGULAR RHYTHM - GI/Abdominal Exam GI & Abdominal Exam: Soft, Tenderness (appropriately). absent: Distended, Firm , Guarding, Rigid, Rebound Additional comments: dressing C/d/I stephen drain in rlq w/ serosanguinous drainage, 150cc total since surgery - Extremities Exam Extremities Exam: absent: Calf Tenderness, Pedal Edema - Neurological Exam Neurological Exam: Alert, Oriented x3 - Psychiatric Exam Psychiatric exam: Normal Affect, Normal Mood - Skin Skin Exam: Dry, Intact Assessment and Plan - Assessment and Plan (Free Text) Assessment: 41 yo F s/p R hemicolectomy, POD #1 -NPO with sips/chips -Continue IVF -D/C Abx -Pain control w/ TOYS INSPECTOR and On-Q -OOB to chair and incentive spirometer -GI/DVT px -Clear for transfer out of icu Dw Dr. Arthur Miguel PGY3
--- NOTE | 2017-08-01 08:28 | OP ---
DATE OF PROCEDURE: 07/30/2017 PREOPERATIVE DIAGNOSIS: Tumor of ascending colon, suspicious for villous adenoma. PROCEDURE PERFORMED: Right colectomy. SURGEON: Dr. Gibson. HEARING CARE PRACTITIONER: Lamont, resident. ANESTHESIOLOGIST: Mariama Cai CRNA. INDICATIONS FOR PROCEDURE: The patient is a middle-aged woman, admitted with abdominal pain, subsequently found to have a large tumor in the ascending colon. Biopsy showed villous adenoma preoperatively. OPERATIVE FINDINGS: There was no evidence of liver spread. There was no evidence of intra-abdominal metastasis. There was no evidence of any regional lymph nodes that were enlarged. The pelvis, ovaries, etc. all appeared normal. DESCRIPTION OF PROCEDURE: The patient was given general anesthesia, intravenous antibiotics, Venodyne boots were applied. Via a midline incision, the abdominal was explored with the above-mentioned findings. There was a slight amount of hardness behind the pylorus, but apart from this, there were no other abnormalities that I could detect. We then mobilized the colon, carried out anastomosis in a [id number] fashion with a stapling device, wrapped the omentum around this, closed the abdomen, placed an ON-Q device for pain control postoperatively, and brought out a drain through the side. Skin was closed with skin clips. Blood loss with procedure was 200 mL. Brennon Gibson Jr., MD cc: Leesa Lee Dr., Alaa S
--- NOTE | 2017-08-01 08:56 | CP.PCM.PN ---
Subjective - Date & Time of Evaluation Date of Evaluation: 08/01/17 Time of Evaluation: 08:55 - Subjective Subjective: Patient seen and examined at bedside; she has pain but it is controlled with the pain medicine and GRADUATE TEACHER EDUCATION; sitting in chair. passing flatus. no other complaints. Objective - Vital Signs/Intake and Output Vital Signs (last 24 hours): Temp Pulse Resp BP Pulse Ox 98.2 F 73 15 109/74 100 07/31/17 20:30 08/01/17 06:22 08/01/17 06:22 08/01/17 06:22 08/01/17 06:22 Intake and Output: 08/01/17 08/01/17 06:59 18:59 Intake Total 1000 100 Output Total 1540 75 Balance -540 25 - Medications Medications: Current Medications Acetaminophen (Tylenol 325mg Tab) 975 mg PO Q8H PRN PRN Reason: Fever >100.4 F Last Admin: 07/28/17 13:46 Dose: 975 mg Enoxaparin Sodium (Lovenox) 30 mg SC DAILY [facility] Famotidine (Pepcid) 20 mg IVP DAILY [facility] Last Admin: 07/31/17 10:30 Dose: 20 mg Hydromorphone/Sodium Chloride (Dilaudid Piercing Specialist) 6 mg IV Q4H PRN; Protocol PRN Reason: Pain, severe (8-10) Last Admin: 07/31/17 19:20 Dose: 6 mg BUPIVACAINE 0.125%/0.9% NACL (Bupivacaine-Ns 0.125% On-Q Country Singer) 600 mls @ 4 mls/ hr IJ ONCE ONE Stop: 08/06/17 18:59 Lactated Ringer's (Lactated Ringer's) 1,000 mls @ 100 mls/hr IV .Q10H [facility] Last Admin: 08/01/17 04:45 Dose: 100 mls/hr Metoclopramide HCl (Reglan) 5 mg IVP Q6 [facility] Last Admin: 08/01/17 06:14 Dose: 5 mg Ondansetron HCl (Zofran Inj) 4 mg IVP Q6H PRN PRN Reason: Nausea/Vomiting - Labs Labs: 08/01/17 06:11 08/01/17 06:11 PT 13.7 SECONDS (9.7-12.2) H 09/25/17 12:50 INR 1.2 07/28/17 12:50 APTT 29 SECONDS (21-34) 07/28/17 12:50 - Constitutional Appears: Non-toxic - Head Exam Head Exam: ATRAUMATIC - Eye Exam Eye Exam: EOMI - ENT Exam ENT Exam: Mucous Membranes Moist - Neck Exam Neck Exam: Full ROM - Respiratory Exam Respiratory Exam: Clear to Ausculation Bilateral, NORMAL BREATHING PATTERN. absent: Rales, Rhonchi, Wheezes - Cardiovascular Exam Cardiovascular Exam: REGULAR RHYTHM - GI/Abdominal Exam GI & Abdominal Exam: Soft, Normal Bowel Sounds - Rectal Exam Rectal Exam: Deferred - Extremities Exam Extremities Exam: Full ROM. absent: Calf Tenderness - Back Exam Back Exam: absent: CVA tenderness (L), CVA tenderness (R) - Neurological Exam Neurological Exam: Alert, Awake, Oriented x3 - Skin Skin Exam: Warm Assessment and Plan - Assessment and Plan (Free Text) Assessment: 41yo F admitted for Colonic Mass found on imaging, now with GI, Surgery, and Heme-onc on board Colonic Mass -Arthur:surgery; appreciate recs; POD#1, patient has adequate pain control -Jl; GI; appreciate recs; large mass seen in flexure. please refer to report -Heme Onc: Marcus-appreciate recs; will need to f/u as outpatient -4 by 2.1cm mass seen on previous contrast -patient has had 4 months of diarrhea; stool studies have been negative -will continue to monitor s/p surgery Prophylaxis -Pepcid IV -Zofran IV PRN -Ibuprofen PRN pain -Lovenox 40 daily (SCD after surgery, can start 24 hours after surgery) Dr. Jason Huerta PGY2 Note for Dr. Reddy
--- NOTE | 2017-08-01 08:59 | PN ---
DATE: LOCATION: [facility] bed B SUBJECTIVE: This is a 41-year-old female seen and examined in rounds without significant clinical changes or reported active bleeding. The entire chart is reviewed including but not limited to the most recent labs and radiology study result, current and previous medication list, current and previous medical events. The patient had CAT scan of the breast yesterday, reported seen. Case was discussed with the surgical scrub tech as well as the primary MD at length. The patient is for OR today for possible partial colon resection. PHYSICAL EXAMINATION: GENERAL: Showed no significant clinical changes. VITAL SIGNS: The patient is afebrile with heart rate of 72, blood pressure 112/72, respiratory rate 20-22. ABDOMEN: Soft, bowel sounds are present. HEART: Positive S1 and S2. LUNGS: Clear, breathing sounds are brisk bilaterally. EXTREMITIES: Without edema, clubbing, or cyanosis. IMPRESSION: 1. Colon polyps. 2. Colon polypoid mass lesion, to rule out possible neoplastic change. 3. Abnormal chest CAT scan. 4. Known history of status post cholecystectomy. SUGGESTION: 1. Continue current management. 2. Prefer hyperalimentation. 3. Oncology-hematology consult as per Dr. Fox. Annetta Fox MD cc: Annetta Fox MD
[2017-08-01] MEDS: Enoxaparin 30 mg Syringe SC SCH (12:44)
--- NOTE | 2017-08-01 12:52 | CP.PCM.PN ---
Subjective - Date & Time of Evaluation Date of Evaluation: 07/31/17 Time of Evaluation: 10:00 - Subjective Subjective: For OR today Objective - Vital Signs/Intake and Output Vital Signs (last 24 hours): Temp Pulse Resp BP Pulse Ox 98.2 F 73 15 109/74 100 07/31/17 20:30 08/01/17 06:22 08/01/17 06:22 08/01/17 06:22 08/01/17 06:22 Intake and Output: 08/01/17 08/01/17 06:59 18:59 Intake Total 1000 100 Output Total 1540 75 Balance -540 25 - Medications Medications: Current Medications Acetaminophen (Tylenol 325mg Tab) 975 mg PO Q8H PRN PRN Reason: Fever >100.4 F Last Admin: 07/28/17 13:46 Dose: 975 mg Enoxaparin Sodium (Lovenox) 30 mg SC DAILY [facility] Last Admin: 08/01/17 12:44 Dose: 30 mg Famotidine (Pepcid) 20 mg IVP DAILY [facility] Last Admin: 08/01/17 12:44 Dose: 20 mg Hydromorphone/Sodium Chloride (Dilaudid Marine Equipment Research Engineer) 6 mg IV Q4H PRN; Protocol PRN Reason: Pain, severe (8-10) Last Admin: 07/31/17 19:20 Dose: 6 mg BUPIVACAINE 0.125%/0.9% NACL (Bupivacaine-Ns 0.125% On-Q Commercial Artist) 600 mls @ 4 mls/ hr IJ ONCE ONE Stop: 08/06/17 18:59 Lactated Ringer's (Lactated Ringer's) 1,000 mls @ 100 mls/hr IV .Q10H [facility] Last Admin: 08/01/17 12:38 Dose: Not Given Metoclopramide HCl (Reglan) 5 mg IVP Q6 [facility] Last Admin: 08/01/17 06:14 Dose: 5 mg Ondansetron HCl (Zofran Inj) 4 mg IVP Q6H PRN PRN Reason: Nausea/Vomiting - Labs Labs: 08/01/17 06:11 08/01/17 06:11 PT 13.7 SECONDS (9.7-12.2) H 07/28/17 12:50 INR 1.2 07/28/17 12:50 APTT 29 SECONDS (21-34) 07/28/17 12:50 - Head Exam Head Exam: ATRAUMATIC - Eye Exam Eye Exam: Normal appearance - ENT Exam ENT Exam: Mucous Membranes Dry - Respiratory Exam Respiratory Exam: NORMAL BREATHING PATTERN - Cardiovascular Exam Cardiovascular Exam: +S1, +S2 - GI/Abdominal Exam GI & Abdominal Exam: Normal Bowel Sounds - Extremities Exam Extremities Exam: Normal Inspection Assessment and Plan (1) Colonic mass Assessment & Plan: for resection today concerning for malignancy Status: Acute (2) Anemia Assessment & Plan: borderline iron stores Status: Acute
--- NOTE | 2017-08-01 12:53 | CP.PCM.PN ---
Subjective - Date & Time of Evaluation Date of Evaluation: 08/01/17 Time of Evaluation: 12:15 - Subjective Subjective: Mild post op pain, father at bedside Objective - Vital Signs/Intake and Output Vital Signs (last 24 hours): Temp Pulse Resp BP Pulse Ox 98.2 F 73 15 109/74 100 07/31/17 20:30 08/01/17 06:22 08/01/17 06:22 08/01/17 06:22 08/01/17 06:22 Intake and Output: 08/01/17 08/01/17 06:59 18:59 Intake Total 1000 100 Output Total 1540 75 Balance -540 25 - Medications Medications: Current Medications Acetaminophen (Tylenol 325mg Tab) 975 mg PO Q8H PRN PRN Reason: Fever >100.4 F Last Admin: 07/28/17 13:46 Dose: 975 mg Enoxaparin Sodium (Lovenox) 30 mg SC DAILY [facility] Last Admin: 08/01/17 12:44 Dose: 30 mg Famotidine (Pepcid) 20 mg IVP DAILY [facility] Last Admin: 08/01/17 12:44 Dose: 20 mg Hydromorphone/Sodium Chloride (Dilaudid Financial Market Dealer) 6 mg IV Q4H PRN; Protocol PRN Reason: Pain, severe (8-10) Last Admin: 07/31/17 19:20 Dose: 6 mg BUPIVACAINE 0.125%/0.9% NACL (Bupivacaine-Ns 0.125% On-Q Pl Sql Programmer) 600 mls @ 4 mls/ hr IJ ONCE ONE Stop: 08/06/17 18:59 Lactated Ringer's (Lactated Ringer's) 1,000 mls @ 100 mls/hr IV .Q10H [facility] Last Admin: 08/01/17 12:38 Dose: Not Given Metoclopramide HCl (Reglan) 5 mg IVP Q6 [facility] Last Admin: 08/01/17 06:14 Dose: 5 mg Ondansetron HCl (Zofran Inj) 4 mg IVP Q6H PRN PRN Reason: Nausea/Vomiting - Labs Labs: 08/01/17 06:11 08/01/17 06:11 PT 13.7 SECONDS (9.7-12.2) H 07/28/17 12:50 INR 1.2 07/28/17 12:50 APTT 29 SECONDS (21-34) 07/28/17 12:50 - Head Exam Head Exam: ATRAUMATIC - Eye Exam Eye Exam: Normal appearance - ENT Exam ENT Exam: Mucous Membranes Dry - Neck Exam Neck Exam: Normal Inspection - Respiratory Exam Respiratory Exam: NORMAL BREATHING PATTERN - Cardiovascular Exam Cardiovascular Exam: +S1, +S2 - GI/Abdominal Exam GI & Abdominal Exam: Normal Bowel Sounds - Extremities Exam Extremities Exam: Normal Inspection Assessment and Plan (1) Colonic mass Assessment & Plan: s/p hemicolectomy outpatient f/u of result Status: Acute (2) Anemia Assessment & Plan: borderline iron stores Status: Acute
--- NOTE | 2017-08-01 13:26 | PN ---
DATE: LOCATION: ICU 16. SUBJECTIVE: This is a 41 years old female post partial colon resection and colonoscopy seen in rounds with intermittent period of abdominal pain, with complain of left leg edematous changes, apparently more than the right one. No reported active bleeding. The entire chart is reviewed including, but not limited to the most recent lab and radiology results, current and the previous medication list, current and the previous medical events and the patient's today's hemoglobin dropped to 10.5, hematocrit 31.9. Low BUN and creatinine as well as low calcium at 8.2 with albumin low at 2.8, low total protein 5.1. CEA level was reported to be normal as well as folate and vitamin B12. PHYSICAL EXAMINATION GENERAL: A 41-year-old female seen in rounds. Case discussed with ICU staff as well as all the consultants on the case. Appear to be awake, alert and oriented. VITAL SIGNS: Afebrile with heart rate of 68, respiratory rate of 16 to 18, with blood pressure of 108/66. HEENT: Showed pale, dry oral mucous membrane. Nonicteric sclerae. LUNGS: Few scattered crepitation. Decreased air entry at bases. HEART: Positive S1 and S2. ABDOMEN: Soft with mild distention with clean dressing. No bowel sounds. The patient reported no bowel movement and no passing gas yet. Generalized abdominal tenderness positive. EXTREMITIES: Lower extremities, mild edematous changes. No clubbing or cyanosis. NEUROLOGIC: No reported new neurological deficits, sensory or motor. IMPRESSION: 1. Colon mass lesion with status post partial colon resection. 2. Colon polyp diagnosed by colonoscopy recently. 3. Anemia post surgically. 4. Abnormal chest CAT scan. 5. Known history of status post cholecystectomy. SUGGESTIONS: 1. Agree with your plan. 2. Prefer hyperalimentation. 3. Followup on pathology report. The patient will need hematology/oncology consult. Annetta Fox MD cc: Annetta Fox MD
[2017-08-02] MEDS: Lactated Ringer's 1,000 ML IV SCH ×2 (07:15→21:30)
[2017-08-02 07:19] LABS: BASO % 0.4 % (0.0-2.0); EOS # 0.1 K/uL (0.0-0.7); EOS % 1.5 % (0.0-4.0); HEMATOCRIT 29.7 % (34.0-47.0); LYMPH # 1.1 K/uL (1.0-4.3); LYMPH % 17.7 % (20.0-40.0); MEAN CELL VOLUME 80.8 fL (81.0-99.0); MEAN CORPUSCULAR HEMOGLOBIN 27.5 pg (27.0-31.0); MEAN PLATELET VOLUME 9.8 fL (7.2-11.7); MONO # 0.4 K/uL (0.0-0.8); MONO % 6.5 % (0.0-10.0); RED CELL DISTRIBUTION WIDTH 13.5 % (11.5-14.5)
[2017-08-02 08:13] LABS: CHLORIDE 97 mmol/L (98-107); POTASSIUM 3.6 mmol/L (3.6-5.2); SODIUM 140 mmol/L (132-148)
[2017-08-02 08:15] LABS: AST/SGOT 16 U/L (14-36); BILIRUBIN,TOTAL 0.7 mg/dL (0.2-1.3); CARBON DIOXIDE 25 mmol/L (22-30); GFR AFRICAN-AMERICAN > 60
[2017-08-02 08:16] LABS: ALB/GLOB RATIO 1.2 (1.0-2.1); ALKALINE PHOSPHATASE 35 U/L (38-126); ALT/SGPT 38 U/L (9-52); BLOOD UREA NITROGEN 4 mg/dL (7-17); CALCIUM 8.2 mg/dl (8.6-10.4); GLUCOSE,RANDOM 80 mg/dL (65-105); TOTAL PROTEIN 5.6 g/dL (6.3-8.3)
--- NOTE | 2017-08-02 08:16 | PN ---
LOCATION: [facility], bed A. SUBJECTIVE: This is a 41-year-old female seen and examined in rounds early today post surgically, appeared to be awake, alert, oriented with intermittent period of post surgical abdominal pain. No bowel movement reported and denied passing gas, but mild nausea and some dyspepsia. The abdominal dressing appeared to be intact and dry. The patient is out of the intensive care unit into the floor. The most recent lab result showed low hemoglobin and hematocrit with low albumin and low total protein. Post surgical pathology report is still pending. The patient is seen by Dr. Velazquez for oncology consultation, still awaiting for the pathology report. PHYSICAL EXAMINATION: GENERAL: A 41 years old female. VITAL SIGNS: Afebrile with pulse of 70, respiratory rate of 20 to 22, blood pressure 120/70. HEENT: Showed pale, dry oral mucous membrane. Nonicteric sclerae. LUNGS: Few scattered crepitation. Decreased air entry at bases. HEART: Positive S1 and S2. ABDOMEN: Soft with mild distention. Bowel sounds are zero and absent. Clean abdominal dressing is in place. EXTREMITIES: Without edema, clubbing or cyanosis. NEUROLOGIC: No reported neurological deficits, sensory or motor. IMPRESSION: 1. Colon polyps, benign. 2. Colon mass lesion, vestibular villous adenoma, post surgical pathology report is still pending. 3. Status post partial colon resection. 4. Anemia post surgically, stable, no extensive active bleeding. 5. Known history of status post cholecystectomy. 6. Abnormal chest CAT scan. SUGGESTION: 1. Continue current management. 2. Prefer hyperalimentation in the meantime. Further evaluation to follow as per Dr. Fox. Annetta Fox MD
--- NOTE | 2017-08-02 09:00 | CP.PCM.PN ---
Subjective - Date & Time of Evaluation Date of Evaluation: 08/02/17 Time of Evaluation: 08:57 - Subjective Subjective: Gen Sx: Dr Gibson Pt S&E. FATOU. Transferred to med/surg. Pain well controlled. Denies N/V, F/ C. OOB and ambulating. Has not yet passed flatus but hungry. Informed of path reports by oncology team, still pending results from surgical pathology. Objective - Vital Signs/Intake and Output Vital Signs (last 24 hours): Temp Pulse Resp BP Pulse Ox 99.0 F 84 20 123/80 99 08/02/17 08:02 08/02/17 08:02 08/02/17 08:02 08/02/17 08:02 08/02/17 08:02 Intake and Output: 08/02/17 08/02/17 06:59 18:59 Intake Total 900 Output Total 275 Balance 625 - Medications Medications: Current Medications Acetaminophen (Tylenol 325mg Tab) 975 mg PO Q8H PRN PRN Reason: Fever >100.4 F Last Admin: 07/28/17 13:46 Dose: 975 mg Enoxaparin Sodium (Lovenox) 30 mg SC DAILY [facility] Last Admin: 08/01/17 12:44 Dose: 30 mg Famotidine (Pepcid) 20 mg IVP DAILY [facility] Last Admin: 08/01/17 12:44 Dose: 20 mg Hydromorphone/Sodium Chloride (Dilaudid Foam Dispenser) 6 mg IV Q4H PRN; Protocol PRN Reason: Pain, severe (8-10) Last Admin: 08/01/17 17:19 Dose: 6 mg BUPIVACAINE 0.125%/0.9% NACL (Bupivacaine-Ns 0.125% On-Q Bi Technical Lead) 600 mls @ 4 mls/ hr IJ ONCE ONE Stop: 08/06/17 18:59 Lactated Ringer's (Lactated Ringer's) 1,000 mls @ 100 mls/hr IV .Q10H [facility] Last Admin: 08/01/17 21:00 Dose: Not Given Metoclopramide HCl (Reglan) 5 mg IVP Q6 [facility] Last Admin: 08/02/17 08:27 Dose: 5 mg Ondansetron HCl (Zofran Inj) 4 mg IVP Q6H PRN PRN Reason: Nausea/Vomiting - Labs Labs: 08/02/17 07:06 08/02/17 07:06 PT 13.7 SECONDS (9.7-12.2) H 07/28/17 12:50 INR 1.2 07/28/17 12:50 APTT 29 SECONDS (21-34) 07/28/17 12:50 - Constitutional Appears: Non-toxic, No Acute Distress - Head Exam Head Exam: NORMAL INSPECTION, NORMOCEPHALIC - ENT Exam ENT Exam: Mucous Membranes Moist - Respiratory Exam Respiratory Exam: absent: Accessory Muscle Use, Respiratory Distress - Cardiovascular Exam Cardiovascular Exam: REGULAR RHYTHM. absent: Tachycardia - GI/Abdominal Exam GI & Abdominal Exam: Soft, Tenderness (post-surgical but minimal). absent: Distended, Firm, Guarding, Rigid Additional comments: dressings c/d/i - Extremities Exam Extremities Exam: absent: Pedal Edema - Neurological Exam Neurological Exam: Alert, Awake, Oriented x3 - Psychiatric Exam Psychiatric exam: Normal Affect, Normal Mood - Skin Skin Exam: Normal Color, Warm Assessment and Plan - Assessment and Plan (Free Text) Assessment: Assessment: 41 yo F s/p R hemicolectomy, POD #2 -adv to CLD -Continue IVF until adequate intake -Cont Pain control w/ RESEARCH PHYSICIAN and On-Q -OOB with PT and incentive spirometer -GI/DVT px -monitor for bowel fx Dw Dr. Arthur Alston, PGY3
[2017-08-02] MEDS: Enoxaparin 30 mg Syringe SC SCH (09:51)
[2017-08-03] MEDS: Lactated Ringer's 1,000 ML IV SCH ×2 (03:56→05:30)
[2017-08-03 08:28] LABS: BASO % 0.6 % (0.0-2.0); EOS # 0.2 K/uL (0.0-0.7); EOS % 3.7 % (0.0-4.0); HEMATOCRIT 28.8 % (34.0-47.0); MEAN CELL VOLUME 80.8 fL (81.0-99.0); MEAN CORPUSCULAR HEMOGLOBIN 27.1 pg (27.0-31.0); MEAN CORPUSCULAR HGB CONC 33.5 g/dL (33.0-37.0); MEAN PLATELET VOLUME 9.6 fL (7.2-11.7); MONO # 0.4 K/uL (0.0-0.8); MONO % 7.3 % (0.0-10.0); RED CELL DISTRIBUTION WIDTH 13.5 % (11.5-14.5); WHITE BLOOD COUNT 5.1 K/uL (4.8-10.8)
[2017-08-03 08:44] LABS: URINE BACTERIA RARE (<OCC); URINE BILIRUBIN NEGATIVE (NEGATIVE); URINE BLOOD 1+ (NEGATIVE); URINE COLOR Straw (YELLOW); URINE GLUCOSE (UA) NORMAL (Normal); URINE KETONE 2+ mg/dL (NEGATIVE); URINE LEUKOCYTE ESTERASE NEG Leu/uL (Negative); URINE PROTEIN NEGATIVE (NEGATIVE); URINE UROBILINOGEN NORMAL mg/dL (0.2-1.0); WBC URINE 1 /hpf (0-5)
[2017-08-03 08:58] LABS: CHLORIDE 99 mmol/L (98-107); POTASSIUM 3.2 mmol/L (3.6-5.2); SODIUM 140 mmol/L (132-148)
[2017-08-03 09:00] LABS: BILIRUBIN,TOTAL 0.7 mg/dL (0.2-1.3); GFR AFRICAN-AMERICAN > 60
[2017-08-03 09:01] LABS: ALB/GLOB RATIO 1.2 (1.0-2.1); ALKALINE PHOSPHATASE 39 U/L (38-126); ALT/SGPT 38 U/L (9-52); AST/SGOT 24 U/L (14-36); BLOOD UREA NITROGEN 3 mg/dL (7-17); CARBON DIOXIDE 25 mmol/L (22-30); GLUCOSE,RANDOM 78 mg/dL (65-105); TOTAL PROTEIN 5.7 g/dL (6.3-8.3)
[2017-08-03 09:02] LABS: CALCIUM 8.4 mg/dl (8.6-10.4)
[2017-08-03 09:09] LABS: RBC URINE 7 /hpf (0-3)
[2017-08-03] MEDS: Enoxaparin 30 mg Syringe SC SCH (09:24)
--- NOTE | 2017-08-03 11:33 | CP.PCM.PN ---
Subjective - Date & Time of Evaluation Date of Evaluation: 08/03/17 Time of Evaluation: 09:00 - Subjective Subjective: General Surgery Pt S&E, NAEO. Some pain along incision. OnQ out of local anesthetic. No flatus or BM. Ambulating, using IS. Tolerating liquids. Objective - Vital Signs/Intake and Output Vital Signs (last 24 hours): Temp Pulse Resp BP Pulse Ox 98.1 F 77 20 109/66 96 08/03/17 04:00 08/03/17 04:00 08/03/17 04:00 08/03/17 04:00 08/03/17 00:00 Intake and Output: 08/03/17 08/03/17 06:59 18:59 Intake Total 800 Output Total 30 Balance 770 - Medications Medications: Current Medications Acetaminophen (Tylenol 325mg Tab) 975 mg PO Q8H [facility] Enoxaparin Sodium (Lovenox) 30 mg SC DAILY [facility] Last Admin: 08/03/17 09:24 Dose: 30 mg Famotidine (Pepcid) 20 mg IVP DAILY [facility] Last Admin: 08/03/17 10:43 Dose: 20 mg Hydromorphone/Sodium Chloride (Dilaudid Network Systems Analyst) 6 mg IV Q4H PRN; Protocol PRN Reason: Pain, severe (8-10) Last Admin: 08/01/17 17:19 Dose: 6 mg BUPIVACAINE 0.125%/0.9% NACL (Bupivacaine-Ns 0.125% On-Q Mixing Tumbler Operator) 600 mls @ 4 mls/ hr IJ ONCE ONE Stop: 08/06/17 18:59 Lactated Ringer's (Lactated Ringer's) 1,000 mls @ 100 mls/hr IV .Q10H [facility] Last Admin: 08/03/17 05:30 Dose: 100 mls/hr Metoclopramide HCl (Reglan) 5 mg IVP Q6 [facility] Last Admin: 08/03/17 05:25 Dose: 5 mg Morphine Sulfate (Morphine) 2 mg IVP Q4 PRN PRN Reason: Pain, moderate (4-7) Ondansetron HCl (Zofran Inj) 4 mg IVP Q6H PRN PRN Reason: Nausea/Vomiting - Labs Labs: 08/03/17 08:21 08/03/17 08:27 PT 13.7 SECONDS (9.7-12.2) H 07/28/17 12:50 INR 1.2 07/28/17 12:50 APTT 29 SECONDS (21-34) 07/28/17 12:50 - Constitutional Appears: Non-toxic, No Acute Distress - Head Exam Head Exam: ATRAUMATIC, NORMOCEPHALIC - Eye Exam Eye Exam: EOMI. absent: Scleral icterus - Respiratory Exam Respiratory Exam: NORMAL BREATHING PATTERN. absent: Respiratory Distress - GI/Abdominal Exam GI & Abdominal Exam: Soft, Tenderness (mild at incision site). absent: Distended, Guarding Additional comments: Dressing C/D/I - Neurological Exam Neurological Exam: Alert, Awake, Oriented x3 - Skin Skin Exam: Dry, Warm Assessment and Plan - Assessment and Plan (Free Text) Assessment: 41F s/p R hemicolectomy, POD #3 Plan: Adjusted pain meds Will remove OnQ pump today Awaiting BM Leukocytosis improving D/W Dr. Arthur Li PGY4
[2017-08-03] MEDS ORDERED: Potassium Chloride 20 mEq ER Tab PO ONE (16:19)
[2017-08-04] MEDS: Lactated Ringer's 1,000 ML IV SCH (04:19)
--- NOTE | 2017-08-04 07:46 | PN ---
DATE: LOCATION: Room 652, bed A. SUBJECTIVE: This is a 41-year-old female seen and examined in rounds with significant clinical changes with intermittent period of post surgical abdominal pain. No bowel movement reported and the patient is not passing gas so far. The entire chart is reviewed including, but not limited to the most recent lab and radiologist results, current and the previous medication list, current and the previous medical events. It was reported that the patient has low hemoglobin and the hematocrit post surgically with low BUN and creatinine, as well as low calcium of 8.2 with low total protein and low albumin. Today's lab is still pending. PHYSICAL EXAMINATION: GENERAL: A 41-year-old female seen and examined in rounds with the staff in the floor, case was discussed with all the consultants post surgically. VITAL SIGNS: Afebrile with pulse of 80, respiratory rate of 18 to 20, and blood pressure of 116/64. HEENT: Showed pale, dry oral mucous membrane. Nonicteric sclerae. LUNGS: Few scattered crepitation. Decreased air entry at bases. HEART: Positive S1 and S2. ABDOMEN: Soft. Bowel sounds are absent. The clean dressing is seen with generalized abdominal tenderness. EXTREMITIES: Without edema, clubbing or cyanosis. NEUROLOGIC: No reported new neurological deficits, sensory or motor. IMPRESSION: 1. Colon mass lesion with a primary diagnosis of colon was raised, awaiting pathology report post surgically. 2. Colon polyps, tubular adenoma of the left side of the colon. 3. Known history of status post cholecystectomy. 4. Abnormal chest CAT scan that to be evaluated by Dr. Reddy. The patient may need bronchoscopy in the near future. Further recommendation to follow. SUGGESTIONS: 1. Continue current management. 2. Central hyperalimentation. 3. Follow up on pathology report. Case is to be discussed with the Oncology/Hematology water resource consultant, Dr. Velazquez and Dr. Fox. Annetta Fox MD cc: Annetta Fox MD
--- NOTE | 2017-08-04 07:46 | CON ---
DATE: 07/28/[address] Fox [address] Dr. Leesa Reddy. I was called for GI consultation by the admitting MD. The patient is seen and fully examined on 07/28/2017. The entire chart is reviewed including, but not limited to the most recent labs and radiology study results, current and previous medication list, and current and previous medical events. Case discussed at length with admitting medical staff on 07/28/2017 both my GI consultation. HISTORY OF PRESENT ILLNESS: This is a 41-year-old female was admitted to the hospital through the emergency room with positive CAT scan of right colon mass of unclear etiologies of the right-sided abdominal pain with occasional rectal bleeding at times and change of bowel movement habits. No hematemesis. No chills or fever and no chest pain. PAST MEDICAL HISTORY: Include mainly status post cholecystectomy. FAMILY HISTORY: Unrelated to specific GI disorder. SOCIAL HISTORY: Denies any known history of cigarette smoking or alcohol intake recently. ALLERGIC TO MEDICATIONS: UNKNOWN. CURRENT MEDICATIONS: Medication list both admission is seen. PHYSICAL EXAMINATION GENERAL: This is a 41-year-old female appeared to be awake, alert, and oriented. VITAL SIGNS: Afebrile with pulse of 72, respiratory rate of 18 to 20, and blood pressure of 120/76. HEENT: Showed dry oral mucous membrane. Nonicteric sclerae. LUNGS: Few scattered crepitation. Decreased air entry at bases. HEART: Positive S1 and S2. ABDOMEN: Soft with mild midepigastric as well as right-sided mild tenderness. No mass or organomegaly. No rebound tenderness or guarding. RECTAL: Positive guaiac positive stool. EXTREMITIES: Without edema, clubbing, or cyanosis. NEUROLOGIC: No new reported neurological deficits, sensory or motor. LABORATORY DATA: Blood workup showed normal values except low creatinine of 0.5. IMPRESSION: 1. Right-sided colon mass of unclear etiology, diagnosed by CAT scan of the abdomen and pelvis as an outpatient. 2. Status post cholecystectomy by history. SUGGESTIONS: 1. I agree with your plan. 2. Scheduled the patient for colonoscopy with biopsy and marking of the above mentioned lesion. 3. Proton pump inhibitor. 4. Further evaluation to follow. Case discussed at length with surgical consultants on the case, Dr. Gibson. Thank you for letting me participate in your patient's case management and oncology/hematology consult may be needed in the near future. Annetta Fox MD cc: Annetta Fox MD
--- NOTE | 2017-08-04 08:47 | CP.PCM.PN ---
Subjective - Date & Time of Evaluation Date of Evaluation: 08/04/17 Time of Evaluation: 06:45 - Subjective Subjective: General Surgery Dr. Gibson Pt S&E @bedside. NAEO. no complaints. Pt denies F/C, N/V, D/C. (-)BM/Flatus. pain well controlled. Objective - Vital Signs/Intake and Output Vital Signs (last 24 hours): Temp Pulse Resp BP Pulse Ox 98.7 F 70 20 124/82 95 08/03/17 23:05 08/03/17 23:05 08/03/17 23:05 08/03/17 23:05 08/03/17 23:05 Intake and Output: 08/04/17 08/04/17 06:59 18:59 Intake Total 1800 Output Total 30 30 Balance 1770 -30 - Medications Medications: Current Medications Acetaminophen (Tylenol 325mg Tab) 975 mg PO Q8H [facility] Last Admin: 08/04/17 03:10 Dose: Not Given Enoxaparin Sodium (Lovenox) 30 mg SC DAILY [facility] Last Admin: 08/03/17 09:24 Dose: 30 mg Famotidine (Pepcid) 20 mg IVP DAILY [facility] Last Admin: 08/03/17 10:43 Dose: 20 mg BUPIVACAINE 0.125%/0.9% NACL (Bupivacaine-Ns 0.125% On-Q Appointment Clerk) 600 mls @ 4 mls/ hr IJ ONCE ONE Stop: 08/06/17 18:59 Metoclopramide HCl (Reglan) 5 mg IVP Q6 [facility] Last Admin: 08/04/17 06:11 Dose: 5 mg Morphine Sulfate (Morphine) 2 mg IVP Q4 PRN PRN Reason: Pain, moderate (4-7) Ondansetron HCl (Zofran Inj) 4 mg IVP Q6H PRN PRN Reason: Nausea/Vomiting - Labs Labs: 08/03/17 08:21 08/03/17 08:27 PT 13.7 SECONDS (9.7-12.2) H 07/28/17 12:50 INR 1.2 07/28/17 12:50 APTT 29 SECONDS (21-34) 07/28/17 12:50 - Constitutional Appears: Non-toxic, No Acute Distress - Head Exam Head Exam: NORMAL INSPECTION - Eye Exam Eye Exam: Normal appearance - ENT Exam ENT Exam: Mucous Membranes Moist - Respiratory Exam Respiratory Exam: NORMAL BREATHING PATTERN. absent: Accessory Muscle Use, Respiratory Distress - GI/Abdominal Exam GI & Abdominal Exam: Soft. absent: Distended, Guarding, Tenderness, Rebound Additional comments: incision c/d/i, well approximated Stephen drain w/ serosanguinous output. - Extremities Exam Extremities Exam: Normal Inspection - Neurological Exam Neurological Exam: Alert, Awake, Oriented x3 - Psychiatric Exam Psychiatric exam: Normal Affect, Normal Mood - Skin Skin Exam: Dry, Normal Color, Warm Assessment and Plan - Assessment and Plan (Free Text) Assessment: 41 y/o F POD#4 s/p R trang-colectomy - monitor bowel function - cont pain management - encourage OOB to chair/Amb/IS use - monitor drain output - 90cc Q24hrs - cont medical management Pt seen and discussed w/ Dr. Arthur Ocasio DO PGY2
--- NOTE | 2017-08-04 09:16 | CP.PCM.PN ---
Subjective - Date & Time of Evaluation Date of Evaluation: 08/04/17 Time of Evaluation: 09:16 - Subjective Subjective: PGY-[address] Reddy's service Pt seen and examined at bedside. Nursing reports no acute events overnight. Pt moved her bowels for the first time since trang-cholectomy, for which she is POD# 4. She denies blood in the stool, and denies abdominal pain, N/V. Pt with burning during urination, and increased frequency. Objective - Vital Signs/Intake and Output Vital Signs (last 24 hours): Temp Pulse Resp BP Pulse Ox 98.3 F 71 17 116/75 96 08/04/17 07:30 08/04/17 07:30 08/04/17 07:30 08/04/17 07:30 08/04/17 07:30 Intake and Output: 08/04/17 08/04/17 06:59 18:59 Intake Total 1800 Output Total 30 30 Balance 1770 -30 - Medications Medications: Current Medications Acetaminophen (Tylenol 325mg Tab) 975 mg PO Q8H [facility] Last Admin: 08/04/17 03:10 Dose: Not Given Enoxaparin Sodium (Lovenox) 30 mg SC DAILY [facility] Last Admin: 08/03/17 09:24 Dose: 30 mg Famotidine (Pepcid) 20 mg IVP DAILY [facility] Last Admin: 08/03/17 10:43 Dose: 20 mg BUPIVACAINE 0.125%/0.9% NACL (Bupivacaine-Ns 0.125% On-Q Automatic Profile Shaper Operator) 600 mls @ 4 mls/ hr IJ ONCE ONE Stop: 08/06/17 18:59 Metoclopramide HCl (Reglan) 5 mg IVP Q6 [facility] Last Admin: 08/04/17 06:11 Dose: 5 mg Morphine Sulfate (Morphine) 2 mg IVP Q4 PRN PRN Reason: Pain, moderate (4-7) Ondansetron HCl (Zofran Inj) 4 mg IVP Q6H PRN PRN Reason: Nausea/Vomiting - Labs Labs: 08/03/17 08:21 08/03/17 08:27 PT 13.7 SECONDS (9.7-12.2) H 07/28/17 12:50 INR 1.2 07/28/17 12:50 APTT 29 SECONDS (21-34) 07/28/17 12:50 - Constitutional Appears: Non-toxic, No Acute Distress - Head Exam Head Exam: NORMAL INSPECTION, NORMOCEPHALIC - Eye Exam Eye Exam: EOMI, PERRL. absent: Scleral icterus - ENT Exam ENT Exam: Mucous Membranes Moist - Respiratory Exam Respiratory Exam: Clear to Ausculation Bilateral, NORMAL BREATHING PATTERN. absent: Accessory Muscle Use, Rales, Rhonchi, Wheezes - Cardiovascular Exam Cardiovascular Exam: REGULAR RHYTHM, +S1, +S2 - GI/Abdominal Exam GI & Abdominal Exam: Soft, Tenderness, Normal Bowel Sounds Additional comments: surgical site: C/D/i Stephen drain with output Suprapubic tenderness - Extremities Exam Extremities Exam: Normal Inspection. absent: Pedal Edema - Back Exam Back Exam: absent: CVA tenderness (L), CVA tenderness (R) - Neurological Exam Neurological Exam: Alert, Awake, Oriented x3 - Psychiatric Exam Psychiatric exam: Normal Affect, Normal Mood - Skin Skin Exam: Normal Color, Warm Assessment and Plan - Assessment and Plan (Free Text) Plan: 41yo F admitted for Colonic Mass found on imaging, now with GI, Surgery, and Heme-onc on board Colonic Mass -[place]:surgery; appreciate recs; POD#4, patient has adequate pain control - encourage OOB to chair, monitor drain output -Jl; GI; appreciate recs; large mass seen in flexure. please refer to report -[facility] Onc: Marcus-appreciate recs; will need to f/u as outpatient -4 by 2.1cm mass seen on previous contrast -patient has had 4 months of diarrhea; stool studies have been negative -will continue to monitor s/p surgery Reglan 5mg IV Q6H [facility] Urinary Tract Infection Pt with pain/burning during urination, suprapubic tenderness f/u UA, urine culture Rocephin 1gm IV daily Prophylaxis -Pepcid IV -Zofran IV PRN -Ibuprofen PRN pain -Lovenox 40 daily disposition: f/u Marcus as outpatient, For D/c tomorrow Murray Medina PGY-2 All medical management per Dr. Reddy.
[2017-08-04] MEDS: Enoxaparin 30 mg Syringe SC SCH (10:00)
--- NOTE | 2017-08-04 14:36 | PN ---
DATE: LOCATION: Room 662, bed A. SUBJECTIVE: This is a 41-year-old female seen and examined early in rounds with significant clinical changes with intermittent period of mild abdominal pain with clean abdominal dressing, out of bed and off. The entire chart is reviewed including, but not limited to the most recent lab and radiologist results, current and the previous medication list, current and the previous medical events. Case discussed with the staff at length as well as all the consultants. Today's lab is still pending and the latest hemoglobin was 9.3, hematocrit 28.8 with low potassium of 3.2 with low BUN and creatinine as well as low calcium and low albumin. PHYSICAL EXAMINATION: GENERAL: A 41-year-old female, out of bed. VITAL SIGNS: Afebrile with pulse of 74, respiratory rate 18 to 20, and blood pressure 120/76. HEENT: Shows pale, dry oral mucous membrane. Nonicteric sclerae. LUNGS: Few scattered crepitation. Decreased air entry at bases. HEART: Positive S1 and S2. ABDOMEN: Soft. Bowel sounds are present, but hypoactive. Clean dressing is seen. EXTREMITIES: Without edema, clubbing or cyanosis. NEUROLOGIC: No neurological deficits, sensory or motor. As we mentioned, the patient is not yet passing gas and no reported bowel movement today. IMPRESSION: 1. Colon polyps, tubular adenoma. 2. Colon polypoid mass lesion, now removed surgically with partial colectomy, pathology report is still pending. 3. Known history of status post cholecystectomy. 4. Anemia secondary to above. 5. Abnormal chest CAT scan. SUGGESTIONS: 1. I agree with your plan. 2. Follow up on the rest of the cancer markers including CA-19-9 as well as CA-125. 3. Continue proton pump inhibitors and IV antibiotics. Further evaluation and recommendation to follow. Annetta Fox MD cc: Annetta Fox MD
[2017-08-04] MEDS ORDERED: Potassium Chloride 20 mEq ER Tab PO ONE (17:00)
[2017-08-04 19:43] LABS: URINE BACTERIA RARE (<OCC); URINE BILIRUBIN NEGATIVE (NEGATIVE); URINE COLOR Straw (YELLOW); URINE GLUCOSE (UA) NORMAL (Normal); URINE KETONE 1+ mg/dL (NEGATIVE); URINE LEUKOCYTE ESTERASE NEG Leu/uL (Negative); URINE PROTEIN NEGATIVE (NEGATIVE); URINE UROBILINOGEN NORMAL mg/dL (0.2-1.0); WBC URINE < 1 /hpf (0-5)
[2017-08-04 20:04] LABS: URINE BLOOD TRACE (NEGATIVE)
[2017-08-05] MEDS: Lactated Ringer's 1,000 ML IV SCH (00:32)
[2017-08-05 00:54] LABS: LACTOFERRIN STOOLQNT <30.0 mcg/mL (<30.0)
--- NOTE | 2017-08-05 07:09 | CP.PCM.PN ---
Subjective - Date & Time of Evaluation Date of Evaluation: 08/05/17 Time of Evaluation: 09:00 - Subjective Subjective: Dr. Reddy service: Patient is seen and examined in room. She is complaining of some acid reflux symptoms but is able to tolerate diet and having regular bowel movement and passing gas. The nurse reports patient complaining of burning with urination that just started today. She denies nausea, vomiting, fever, chills, or difficulty breathing. Objective - Vital Signs/Intake and Output Vital Signs (last 24 hours): Temp Pulse Resp BP Pulse Ox 97.9 F 74 20 111/70 96 08/05/17 04:05 08/05/17 04:05 08/05/17 04:05 08/05/17 04:05 08/05/17 04:05 Intake and Output: 08/05/17 08/05/17 06:59 18:59 Intake Total 2100 Output Total 80 Balance 2020 - Medications Medications: Current Medications Acetaminophen (Tylenol 325mg Tab) 975 mg PO Q8H [facility] Last Admin: 08/05/17 02:52 Dose: Not Given Enoxaparin Sodium (Lovenox) 30 mg SC DAILY [facility] Last Admin: 08/04/17 10:00 Dose: 30 mg Famotidine (Pepcid) 20 mg IVP DAILY [facility] Last Admin: 08/04/17 10:00 Dose: 20 mg BUPIVACAINE 0.125%/0.9% NACL (Bupivacaine-Ns 0.125% On-Q [employer] Records Clerk) 600 mls @ 4 mls/ hr IJ ONCE ONE Stop: 08/06/17 18:59 Ceftriaxone Sodium 1 gm/ (Sodium Chloride) 100 mls @ 100 mls/hr IVPB Q24H [facility] Last Admin: 08/04/17 18:09 Dose: 100 mls/hr Metoclopramide HCl (Reglan) 5 mg IVP Q6 [facility] Last Admin: 08/05/17 06:14 Dose: 5 mg Morphine Sulfate (Morphine) 2 mg IVP Q4 PRN PRN Reason: Pain, moderate (4-7) Ondansetron HCl (Zofran Inj) 4 mg IVP Q6H PRN PRN Reason: Nausea/Vomiting - Labs Labs: 08/03/17 08:21 08/03/17 08:27 PT 13.7 SECONDS (9.7-12.2) H 07/28/17 12:50 INR 1.2 07/28/17 12:50 APTT 29 SECONDS (21-34) 07/28/17 12:50 - Constitutional Appears: Non-toxic, No Acute Distress - Eye Exam Eye Exam: Normal appearance - ENT Exam ENT Exam: Normal Exam - Respiratory Exam Respiratory Exam: Clear to Ausculation Bilateral. absent: Rales, Rhonchi, Wheezes - Cardiovascular Exam Cardiovascular Exam: REGULAR RHYTHM, RRR, +S1, +S2. absent: Gallop, Rubs - GI/Abdominal Exam GI & Abdominal Exam: Soft, Tenderness, Normal Bowel Sounds. absent: Distended, Guarding Additional comments: drain, with in place. - Extremities Exam Extremities Exam: Normal Inspection. absent: Pedal Edema - Neurological Exam Neurological Exam: Alert - Psychiatric Exam Psychiatric exam: Normal Affect, Normal Mood Assessment and Plan - Assessment and Plan (Free Text) Assessment: Colonic Mass 08/05: Patient is POD #5, drain is removed, she is tolerating diet, have discharged patient home, she will follow up with Dr. Reddy or her own PMD after surgery. Arthur:surgery; appreciate recs; POD#4, patient has adequate pain control - encourage OOB to chair, monitor drain output -Jl; GI; appreciate recs; large mass seen in flexure. please refer to report -Heme Onc: Marcus-appreciate recs; will need to f/u as outpatient -4 by 2.1cm mass seen on previous contrast -patient has had 4 months of diarrhea; stool studies have been negative -will continue to monitor s/p surgery Reglan 5mg IV Q6H [facility] Urinary Tract Infection 08/05: UA is negative for urinary tract infection. Pt with pain/burning during urination, suprapubic tenderness f/u UA, urine culture Rocephin 1gm IV daily Prophylaxis -Pepcid IV -Zofran IV PRN -Ibuprofen PRN pain -Lovenox 40 daily disposition: f/u Marcus as outpatient, For D/c tomorrow Murray Medina PGY-2 All medical management per Dr. Reddy.
[2017-08-05 08:21] VITALS: BP 113/72; PULSE 67; RESP 17; TEMP 98.1; O2SAT 95
[2017-08-05 09:15] LABS: BASO % 0.7 % (0.0-2.0); EOS # 0.3 K/uL (0.0-0.7); HEMATOCRIT 30.8 % (34.0-47.0); LYMPH # 1.3 K/uL (1.0-4.3); LYMPH % 29.6 % (20.0-40.0); MEAN CELL VOLUME 79.6 fL (81.0-99.0); MEAN CORPUSCULAR HEMOGLOBIN 26.9 pg (27.0-31.0); MEAN CORPUSCULAR HGB CONC 33.9 g/dL (33.0-37.0); MEAN PLATELET VOLUME 9.3 fL (7.2-11.7); MONO # 0.3 K/uL (0.0-0.8); MONO % 7.4 % (0.0-10.0); RED CELL DISTRIBUTION WIDTH 13.5 % (11.5-14.5); WHITE BLOOD COUNT 4.4 K/uL (4.8-10.8)
[2017-08-05 09:24] LABS: CHLORIDE 99 mmol/L (98-107); POTASSIUM 3.7 mmol/L (3.6-5.2); SODIUM 140 mmol/L (132-148)
[2017-08-05 09:26] LABS: BILIRUBIN,TOTAL 0.6 mg/dL (0.2-1.3); CARBON DIOXIDE 29 mmol/L (22-30); GFR AFRICAN-AMERICAN > 60
[2017-08-05 09:27] LABS: ALB/GLOB RATIO 1.1 (1.0-2.1); ALKALINE PHOSPHATASE 52 U/L (38-126); ALT/SGPT 108 U/L (9-52); AST/SGOT 56 U/L (14-36); CALCIUM 8.9 mg/dl (8.6-10.4); GLUCOSE,RANDOM 87 mg/dL (65-105); TOTAL PROTEIN 6.4 g/dL (6.3-8.3)
[2017-08-05 09:32] LABS: BLOOD UREA NITROGEN 2 mg/dL (7-17)
[2017-08-05] MEDS: Enoxaparin 30 mg Syringe SC SCH (10:18)
--- NOTE | 2017-08-05 10:56 | CARD ---
APPROVED REPORT EKG Measurement Heart [id number] AK [id number] <Conclusion> Normal sinus rhythm Normal ECG
[2017-08-05] MEDS ORDERED: Influenza Vaccine 60 mcg/0.5 mL SYR (4YR UP) IM ONE (13:45)
--- NOTE | 2017-08-05 15:37 | CP.PCM.PN ---
Subjective - Date & Time of Evaluation Date of Evaluation: 08/05/17 Time of Evaluation: 15:35 - Subjective Subjective: Surgery: Dr. Gibson Pt seen and examined. Resting comfortably in bed. Pain controlled. Tolerating diet. No N/V. Pt is having flatus and BM. Objective - Vital Signs/Intake and Output Vital Signs (last 24 hours): Temp Pulse Resp BP Pulse Ox 98.1 F 67 17 113/72 95 08/05/17 07:20 08/05/17 07:20 08/05/17 07:20 08/05/17 07:20 08/05/17 07:20 Intake and Output: 08/05/17 08/05/17 06:59 18:59 Intake Total 2100 740 Output Total 80 Balance 2020 740 - Labs Labs: 08/05/17 09:06 08/05/17 09:06 PT 13.7 SECONDS (9.7-12.2) H 07/28/17 12:50 INR 1.2 07/28/17 12:50 APTT 29 SECONDS (21-34) 07/28/17 12:50 - Constitutional Appears: Non-toxic, No Acute Distress - Head Exam Head Exam: ATRAUMATIC, NORMOCEPHALIC - Eye Exam Eye Exam: EOMI. absent: Scleral icterus - ENT Exam ENT Exam: Mucous Membranes Moist - Neck Exam Neck Exam: Full ROM - Respiratory Exam Respiratory Exam: NORMAL BREATHING PATTERN. absent: Accessory Muscle Use, Respiratory Distress - GI/Abdominal Exam GI & Abdominal Exam: Soft. absent: Distended, Firm, Guarding, Rigid, Tenderness , Rebound Additional comments: incision C/D/I R side rakesh in place - Extremities Exam Extremities Exam: absent: Calf Tenderness, Pedal Edema - Neurological Exam Neurological Exam: Alert, Awake, Oriented x3 - Psychiatric Exam Psychiatric exam: Normal Affect, Normal Mood Assessment and Plan - Assessment and Plan (Free Text) Assessment: 41F w. colon mass, s/p R hemicolectomy, POD#5 -rakesh 110cc/24 hr serosang, will d/c drain -diet advanced to regular -encourage ambulation and IS use -DVT prophylaxis -d/w attending [place] PGY3
--- NOTE | 2017-08-05 15:44 | PN ---
DATE: LOCATION: Room 662, bed 8. SUBJECTIVE: This is a 41-year-old female seen and examined in rounds, appeared to be awake, alert and oriented. She had bowel movement and had been passing gas recently according to the patient's treatment without any reported active bleeding. The entire chart is reviewed including but not limited to most recent lab and radiologist results, current and the previous medication list, current and the previous medical events and today's lab showed hemoglobin of 10.4, hematocrit 30.8 with low indices with low BUN and creatinine, but mildly elevated AST to 56, ALT to 108 with low albumin of 3.3. PHYSICAL EXAMINATION GENERAL: A 41-year-old female. VITAL SIGNS: Afebrile with pulse of 64, respiratory rate of 18 to 20, blood pressure of 118/70. HEENT: Showed pale, dry oral mucoid membrane. Nonicteric sclerae. LUNGS: Few scattered crepitation. Decreased air entry at bases. HEART: Positive S1 and S2. ABDOMEN: Soft. Bowel sounds are present, but excessively hypoactive which are mild tenderness. Clean dressing is in place. EXTREMITIES: Without edema, clubbing or cyanosis. NEUROLOGIC: No reported neurological deficits, sensory or motor. She has to be mentioned that the patient complaining of dysuria and polyuria recently. Pathology report from the partial colon resection is still pending. IMPRESSION: 1. Colon polyps, tubular adenoma. 2. Tubular and villous adenoma mess lesion was possible cancer of colon, pathology report is pending. 3. Status post partial colon resection. 4. Known history of status post cholecystectomy. 5. Anemia most likely secondary to above. 6. Abnormal chest and CAT scan that to be evaluated by Dr. Reddy. SUGGESTIONS: 1. Continue current management. 2. Advanced diet gradually. 3. Follow up colonoscopy after one-year. 4. Follow up on pathology report. Case is to be discussed with Oncology/Hematology datapower consultant on the case. Annetta Fox MD
--- NOTE | 2017-08-20 11:02 | DS ---
SUMMARY: Patient ____ leg pain ____ with colectomy. after the surgery. Patient Discharged, follow up outpatient. Leesa Reddy MD
== END 2017-08-05 15:11 | disposition home or self-care (01) | DRG 148 ==
LOC: C.ER 10:09 → C.9E 12:10 → C.3T 17:22 → C.9I 07-31 20:16 → C.6T 08-02 02:08
PROVIDERS: ADMIT Internal Medicine Pulmonary Disease; ATTEND Internal Medicine Pulmonary Disease
PROC: 0DBM8ZX Excision of Descending Colon, Via Natural or Artificial Opening Endoscopic, Diagnostic (ICD-10-PCS; 2017-07-29)
PROC: 0DDL8ZX Extraction of Transverse Colon, Via Natural or Artificial Opening Endoscopic, Diagnostic (ICD-10-PCS; 2017-07-29)
PROC: 0DTF0ZZ Resection of Right Large Intestine, Open Approach (ICD-10-PCS; principal; 2017-07-31 10:00)
DX: D37.4 Neoplasm of uncertain behavior of colon (principal); D62 Acute posthemorrhagic anemia; D12.4 Benign neoplasm of descending colon; D12.3 Benign neoplasm of transverse colon; D72.829 Elevated white blood cell count, unspecified; G89.18 Other acute postprocedural pain; K64.8 Other hemorrhoids